=== PATIENT | male | born 1995 | race Caucasian/White ===

== ENCOUNTER 2016-04-13 13:09 | Outpatient (CLI) | payer BC ==
[~2016-04-13] VITALS: Ht 172.7 cm; Wt 88.0 kg
[~2016-04-13 13:09] MED LIST: ACETAMINOPHEN TAB 650MG DOSE (2X325MG) PO ONE; BENT10CA PO; CIPR500T89 PO; DELZ400C PO; FERR325T3 PO; IRON65TA PO; LIAL1.2T PO; METR500T10 PO; PRED20TA PO; PRED20TAB PO; PRIL40CA PO; REGL5TAB2 PO; TYLE325T5 PO; VEDOLIZUMAB 300 MG in NS 250 ML IV ONE; VITA500046 PO; VSL#CAP PO; ZOFR4TAB3 PO; diphenhydrAMINE 25 MG CAP PO ONE
[2016-04-13 14:13] LABS: BASO % 0.8 % (0.0-1.0); EOS # 0.3 K/mm3 (0.0-0.50); LARGE UNSTAINED CELL # 0.1 K/mm3 (0.0-0.4); LARGE UNSTAINED CELL % 1.4 % (0.0-4.0); LYMPH # 1.5 K/mm3 (1.5-6.5); LYMPH % 29.9 % (24.0-44.0); MEAN CORPUSCULAR HEMOGLOBIN 27.8 pg (27.0-33.0); MEAN CORPUSCULAR HGB CONC 34.8 g/dl (32.0-36.5); MEAN CORPUSCULAR VOLUME 79.9 fl (80.0-96.0); MONO # 0.2 K/mm3 (0.0-0.8); NEUTROPHILS # 2.9 K/mm3 (1.8-7.7); NEUTROPHILS % 57.9 % (36.0-66.0); WHITE BLOOD COUNT 4.9 K/mm3 (4.0-10.0)
[2016-04-13 14:14] LABS: ERYTHROCYTE SEDIMENTATION RATE 13 mm/hr (0-15)
[2016-04-13 14:17] LABS: PLATELET COUNT, AUTOMATED 22 k/mm3 (150-450)
[2016-04-13 14:32] LABS: ALBUMIN 3.9 GM/DL (3.2-5.2); ALBUMIN/GLOBULIN RATIO 1.18 (1.00-1.93); ALKALINE PHOSPHATASE 160 U/L (45-117); ALT/SGPT 20 U/L (12-78); ANION GAP 8 MEQ/L (8-16); AST/SGOT 11 U/L (15-37); BILIRUBIN,TOTAL 0.5 MG/DL (0.2-1.0); BLOOD UREA NITROGEN 11 MG/DL (7-18); CALCIUM LEVEL 8.6 MG/DL (8.5-10.1); CARBON DIOXIDE LEVEL 29 MEQ/L (21-32); CHLORIDE LEVEL 106 MEQ/L (98-107); CREATININE FOR GFR 1.09 MG/DL (0.70-1.30); GLUCOSE, FASTING 88 MG/DL (70-105); POTASSIUM SERUM 3.6 MEQ/L (3.5-5.1); SODIUM LEVEL 143 MEQ/L (136-145); TOTAL PROTEIN 7.2 GM/DL (6.4-8.2)
== END 2016-04-13 14:45 | disposition home or self-care (01) ==
LOC: M INFU 13:09
PROVIDERS: ATTEND Internal Medicine Gastroenterology
DX: K50.119 Crohn's disease of large intestine with unspecified complications (principal); D61.810 Antineoplastic chemotherapy induced pancytopenia; Z91.030 Bee allergy status; Z79.899 Other long term (current) drug therapy; Z79.52 Long term (current) use of systemic steroids
CPT/HCPCS: 36415; 80053; 85025; 85652; 86140; 96413; J3380

== ENCOUNTER → 2016-04-20 | Outpatient (CLI) | payer BC ==
[~2016-04-20] MED LIST changes: -ACETAMINOPHEN TAB 650MG DOSE (2X325MG) PO ONE; -VEDOLIZUMAB 300 MG in NS 250 ML IV ONE; -diphenhydrAMINE 25 MG CAP PO ONE
[2016-04-20 16:17] LABS: BASO % 0.6 % (0.0-1.0); EOS # 0.4 K/mm3 (0.0-0.50); EOS % 5.3 % (0.0-3.0); LARGE UNSTAINED CELL # 0.1 K/mm3 (0.0-0.4); LARGE UNSTAINED CELL % 1.9 % (0.0-4.0); LYMPH # 1.9 K/mm3 (1.5-6.5); LYMPH % 26.3 % (24.0-44.0); MEAN CORPUSCULAR HEMOGLOBIN 27.5 pg (27.0-33.0); MEAN CORPUSCULAR HGB CONC 34.2 g/dl (32.0-36.5); MEAN CORPUSCULAR VOLUME 80.3 fl (80.0-96.0); MONO # 0.4 K/mm3 (0.0-0.8); MONO % 5.1 % (0.0-5.0); NEUTROPHILS # 4.5 K/mm3 (1.8-7.7); NEUTROPHILS % 60.8 % (36.0-66.0); RED CELL DISTRIBUTION WIDTH 14.1 % (11.5-14.5); WHITE BLOOD COUNT 7.3 K/mm3 (4.0-10.0)
[2016-04-20 16:20] LABS: PLATELET COUNT, AUTOMATED 27 k/mm3 (150-450)
== END ==
LOC: M LAB 15:11
PROVIDERS: ATTEND Internal Medicine Gastroenterology
DX: D61.810 Antineoplastic chemotherapy induced pancytopenia (principal)

== ENCOUNTER → 2016-05-04 | Outpatient (CLI) | payer BC ==
[2016-05-04 13:51] LABS: BASO % 0.6 % (0.0-1.0); EOS # 0.5 K/mm3 (0.0-0.50); EOS % 7.3 % (0.0-3.0); LARGE UNSTAINED CELL # 0.2 K/mm3 (0.0-0.4); LARGE UNSTAINED CELL % 2.2 % (0.0-4.0); LYMPH # 2.2 K/mm3 (1.5-6.5); LYMPH % 34.4 % (24.0-44.0); MEAN CORPUSCULAR HEMOGLOBIN 27.6 pg (27.0-33.0); MEAN CORPUSCULAR HGB CONC 34.5 g/dl (32.0-36.5); MEAN CORPUSCULAR VOLUME 79.9 fl (80.0-96.0); MONO # 0.3 K/mm3 (0.0-0.8); NEUTROPHILS # 3.3 K/mm3 (1.8-7.7); NEUTROPHILS % 50.4 % (36.0-66.0); RED CELL DISTRIBUTION WIDTH 13.8 % (11.5-14.5); WHITE BLOOD COUNT 6.5 K/mm3 (4.0-10.0)
[2016-05-04 15:03] LABS: PLATELET COUNT, AUTOMATED 20 k/mm3 (150-450)
== END ==
LOC: M LAB 12:09
PROVIDERS: ATTEND Internal Medicine Gastroenterology
DX: K50.119 Crohn's disease of large intestine with unspecified complications (principal); D69.6 Thrombocytopenia, unspecified

== ENCOUNTER → 2016-05-10 | Outpatient (REF) | payer BC ==
[2016-05-10 13:30] LABS: BASO # 0.1 K/mm3 (0.0-0.2); BASO % 1.3 % (0.0-1.0); EOS # 0.6 K/mm3 (0.0-0.50); EOS % 6.6 % (0.0-3.0); LARGE UNSTAINED CELL # 0.2 K/mm3 (0.0-0.4); LARGE UNSTAINED CELL % 2.7 % (0.0-4.0); LYMPH # 2.6 K/mm3 (1.5-6.5); MEAN CORPUSCULAR HGB CONC 35.3 g/dl (32.0-36.5); MEAN CORPUSCULAR VOLUME 79.4 fl (80.0-96.0); MONO # 0.4 K/mm3 (0.0-0.8); MONO % 4.5 % (0.0-5.0); NEUTROPHILS # 4.7 K/mm3 (1.8-7.7); NEUTROPHILS % 54.9 % (36.0-66.0); RED CELL DISTRIBUTION WIDTH 13.9 % (11.5-14.5); WHITE BLOOD COUNT 8.5 K/mm3 (4.0-10.0)
[2016-05-10 13:36] LABS: PLATELET COUNT, AUTOMATED 23 k/mm3 (150-450)
== END | disposition home or self-care (01) ==
LOC: M SFHCPLAZ 11:58
PROVIDERS: ATTEND Family Medicine
DX: D69.6 Thrombocytopenia, unspecified (principal)

== ENCOUNTER → 2016-05-12 | Outpatient (CLI) | payer BC ==
[2016-05-12 12:38] LABS: BASO # 0.1 K/mm3 (0.0-0.2); BASO % 0.7 % (0.0-1.0); EOS # 0.6 K/mm3 (0.0-0.50); EOS % 7.8 % (0.0-3.0); LARGE UNSTAINED CELL # 0.2 K/mm3 (0.0-0.4); LARGE UNSTAINED CELL % 1.9 % (0.0-4.0); LYMPH # 2.4 K/mm3 (1.5-6.5); LYMPH % 30.9 % (24.0-44.0); MEAN CORPUSCULAR HEMOGLOBIN 27.5 pg (27.0-33.0); MEAN CORPUSCULAR HGB CONC 34.7 g/dl (32.0-36.5); MEAN CORPUSCULAR VOLUME 79.1 fl (80.0-96.0); MONO # 0.3 K/mm3 (0.0-0.8); MONO % 3.8 % (0.0-5.0); NEUTROPHILS # 4.3 K/mm3 (1.8-7.7); NEUTROPHILS % 54.8 % (36.0-66.0); RED CELL DISTRIBUTION WIDTH 13.8 % (11.5-14.5); WHITE BLOOD COUNT 7.8 K/mm3 (4.0-10.0)
[2016-05-12 12:44] LABS: ADD MORPHOLOGY? YES; PLATELET COUNT, AUTOMATED 21 k/mm3 (150-450)
[2016-05-12 13:00] LABS: MICROCYTOSIS 1+
== END ==
LOC: M LAB 12:10
PROVIDERS: ATTEND Internal Medicine Gastroenterology
DX: K50.119 Crohn's disease of large intestine with unspecified complications (principal); D69.6 Thrombocytopenia, unspecified

== ENCOUNTER → 2016-05-16 | Outpatient (REF) | payer BC ==
[2016-05-16 13:19] LABS: REASON FOR REVIEW COMPREHENSIVE REVIEW
[2016-05-16 13:50] LABS: ERYTHROCYTE SEDIMENTATION RATE 30 mm/hr (0-15)
== END ==
LOC: M LAB REF 12:28
PROVIDERS: ATTEND Internal Medicine Medical Oncology
DX: D69.6 Thrombocytopenia, unspecified (principal)

== ENCOUNTER → 2016-05-17 | Outpatient (CLI) | payer BC ==
--- NOTE | 2016-05-17 08:44 | REP ---
LIMITED ABDOMINAL ULTRASOUND: 05/17/2016. Comparison CT abdomen and pelvis 12/02/2015. Clinical history: Left upper quadrant abdominal pain. Evaluate for splenomegaly or other. Findings: Sonographic evaluation of the left upper quadrant shows the spleen measuring 11.6 x 10.5 x 5.6 cm. This gives a calculated splenic index of 682 with a normal range less than 480. On the previous CT 12/02/2015, it measured 12.7 x 5 x 11.8 mm giving a splenic index 749. There is no focal splenic mass, subcapsular hematoma or adjacent ascites. The left kidney measures 10 x 5.1 x 6.5 cm. There is no hydronephrosis, stone or mass. Cortical echogenicity and thickness are normal. Impression: 1. Mild splenomegaly without focal splenic mass, adjacent ascites or other acute finding in the left upper quadrant. Splenic index on today's ultrasound was 682.1, on the prior CT 5 months ago, it was 749.2. Left kidney unremarkable. Signed by Rubén Ricci MD 05/17/2016 08:15 P
== END ==
LOC: M RAD 06:56
PROVIDERS: ATTEND Internal Medicine Medical Oncology
DX: R16.1 Splenomegaly, not elsewhere classified (principal)

== ENCOUNTER → 2016-05-17 | Outpatient (REF) | payer BC | LOC: M LAB REF 16:39 | PROVIDERS: ATTEND Internal Medicine Medical Oncology | DX: D69.6 Thrombocytopenia, unspecified (principal) ==

== ENCOUNTER → 2016-05-24 | Outpatient (CLI) | payer BC ==
--- NOTE | 2016-05-24 14:00 | REP ---
MR BRAIN WITHOUT CONTRAST: HISTORY: Headaches. There are no areas of abnormal signal intensity in the brain. There is no intraparenchymal hemorrhage, infarct, mass or midline shift. The ventricular system is normal in appearance. There is no extracerebral collection. The sinuses are clear. IMPRESSION: There is no intracranial lesion. Signed by Jeffrey Eldridge MD 05/24/2016 02:02 P
== END ==
LOC: M RAD 13:11
PROVIDERS: ATTEND Family Medicine
DX: R51 Headache (principal)

== ENCOUNTER 2016-06-08 06:56 | Outpatient (CLI) | payer BC ==
[~2016-06-08] VITALS: Ht 172.7 cm; Wt 88.0 kg
[2016-06-08] MEDS ORDERED: diphenhydrAMINE 25 MG CAP PO ONE (07:00)
[2016-06-08] MEDS ORDERED: ACETAMINOPHEN TAB 650MG DOSE (2X325MG) PO ONE (07:00)
[2016-06-08] MEDS ORDERED: VEDOLIZUMAB 300 MG in NS 250 ML IV ONE (07:00)
== END 2016-06-08 08:30 | disposition home or self-care (01) ==
LOC: M INFU 06:56
PROVIDERS: ATTEND Internal Medicine Gastroenterology
DX: K50.90 Crohn's disease, unspecified, without complications (principal); Z79.899 Other long term (current) drug therapy; Z91.030 Bee allergy status
CPT/HCPCS: 96413; J3380

== ENCOUNTER → 2016-06-15 | Outpatient (REF) | payer BC ==
[2016-06-18 00:06] LABS: H PYLORI SERUM QUANT IgG ABY <0.9 U/mL (0.0-0.8)
== END ==
LOC: M LAB REF 13:10
PROVIDERS: ATTEND Internal Medicine Medical Oncology
DX: D69.3 Immune thrombocytopenic purpura (principal)

== ENCOUNTER → 2016-07-04 | Outpatient (REF) | payer BC | LOC: M LAB REF 09:05 | PROVIDERS: ATTEND Nurse Practitioner Family | DX: D69.6 Thrombocytopenia, unspecified (principal) ==

== ENCOUNTER 2016-07-27 13:19 | Outpatient (CLI) | payer BC ==
[~2016-07-27] VITALS: Ht 172.7 cm; Wt 87.0 kg
[~2016-07-27 13:19] MED LIST changes: +ACETAMINOPHEN TAB 650MG DOSE (2X325MG) PO ONE; +VEDOLIZUMAB 300 MG in NS 250 ML IV ONE; +diphenhydrAMINE 25 MG CAP PO ONE
[2016-07-27 15:05] LABS: FOLATE 15.8 NG/ML; VITAMIN B12 LEVEL 483 PG/ML
[2016-07-31 00:10] LABS: VITAMIN E LEVEL 10.9 mg/L (5.3-17.5)
== END 2016-07-27 15:10 | disposition home or self-care (01) ==
LOC: M INFU 13:19
PROVIDERS: ATTEND Internal Medicine Gastroenterology
DX: K50.90 Crohn's disease, unspecified, without complications (principal); R51 Headache; Z87.19 Personal history of other diseases of the digestive system; Z91.030 Bee allergy status; Z79.899 Other long term (current) drug therapy
CPT/HCPCS: 82306; 82390; 82525; 82607; 82746; 84207; 84425; 84446; 85652; 86038; 86431; 96413; 99195; J3380

== ENCOUNTER 2016-09-21 12:30 | Outpatient (CLI) | payer BC ==
[~2016-09-21 12:30] MED LIST changes: +CIPR-249 PO; -CIPR500T89 PO; +METR1TAB66 PO; -METR500T10 PO
[2017-01-19] MEDS ORDERED: OXYC15TA76 PO (13:46)
[2017-01-19] MEDS ORDERED: PAME10CA PO (13:46)
== END 2016-09-21 13:25 | disposition home or self-care (01) ==
LOC: M INFU 12:30
PROVIDERS: ATTEND Internal Medicine Gastroenterology
DX: K50.90 Crohn's disease, unspecified, without complications (principal); Z87.19 Personal history of other diseases of the digestive system; Z91.030 Bee allergy status; Z79.899 Other long term (current) drug therapy
CPT/HCPCS: 96413; J3380

== ENCOUNTER 2016-11-24 13:27 | Outpatient (CLI) | payer BC ==
[~2016-11-24 13:27] MED LIST changes: -ACETAMINOPHEN TAB 650MG DOSE (2X325MG) PO ONE; -VEDOLIZUMAB 300 MG in NS 250 ML IV ONE; -diphenhydrAMINE 25 MG CAP PO ONE
[2016-11-24] MEDS ORDERED: ACETAMINOPHEN TAB 650MG DOSE (2X325MG) PO ONE (14:00)
[2016-11-24] MEDS ORDERED: diphenhydrAMINE 25 MG CAP PO ONE (14:00)
[2016-11-24] MEDS ORDERED: VEDOLIZUMAB 300 MG in NS 250 ML IV ONE (14:00)
[2017-01-19] MEDS ORDERED: OXYC15TA76 PO (13:46)
[2017-01-19] MEDS ORDERED: PAME10CA PO (13:46)
== END 2016-11-24 15:00 | disposition home or self-care (01) ==
LOC: M INFU 13:27
PROVIDERS: ATTEND Internal Medicine Gastroenterology
DX: K50.90 Crohn's disease, unspecified, without complications (principal); Z91.030 Bee allergy status; Z79.899 Other long term (current) drug therapy
CPT/HCPCS: 96413; J3380

== ENCOUNTER 2017-02-21 10:45 | Outpatient (RCR) | payer BC ==
[~2017-02-21 10:45] MED LIST changes: +OXYC15TA76 PO; +PAME10CA PO
== END 2017-02-22 ==
LOC: M PT 10:45
PROVIDERS: ATTEND Family Medicine
DX: Z51.89 Encounter for other specified aftercare (principal); M54.2 Cervicalgia; R51 Headache

== ENCOUNTER 2017-02-26 11:08 | Outpatient (RCR) | payer BC | END 2017-03-25 | LOC: M PT 11:08 | DX: Z51.89 Encounter for other specified aftercare (principal); M54.2 Cervicalgia; R51 Headache | CPT/HCPCS: 97010 ==

== ENCOUNTER → 2017-03-07 | Outpatient (REF) | payer BC ==
[2017-03-07 15:32] LABS: BASO % 0.4 % (0.0-1.0); EOS % 0.5 % (0.0-3.0); IMMATURE GRANULOCYTE % 0.4 % (0-0); LYMPH # 1.6 10^3/uL (1.5-6.5); LYMPH % 19.9 % (24.0-44.0); MEAN CORPUSCULAR HEMOGLOBIN 24.6 pg (27.0-33.0); MEAN CORPUSCULAR HGB CONC 31.7 g/dl (32.0-36.5); MEAN CORPUSCULAR VOLUME 77.7 fl (80.0-96.0); MONO # 0.3 10^3/uL (0.0-0.8); MONO % 3.9 % (0.0-5.0); NEUTROPHILS # 5.9 10^3/uL (1.8-7.7); NEUTROPHILS % 74.9 % (36.0-66.0); WHITE BLOOD COUNT 7.9 10^3/uL (4.0-10.0)
[2017-03-07 16:02] LABS: PLATELET COUNT, AUTOMATED 77 10^3/uL (150-450)
[2017-03-07 16:05] LABS: IMMATURE PLATELET FRACTION % 9.7 % (0.0-10.9)
== END ==
LOC: M SFHCPLAZ 14:26
PROVIDERS: ATTEND Family Medicine
DX: E66.9 Obesity, unspecified (principal); D69.3 Immune thrombocytopenic purpura

== ENCOUNTER 2017-03-16 13:27 | Outpatient (CLI) | payer BC ==
[~2017-03-16] VITALS: Ht 172.7 cm; Wt 88.0 kg
[2017-03-16] MEDS ORDERED: diphenhydrAMINE 25 MG CAP PO ONE (13:45)
[2017-03-16] MEDS ORDERED: ACETAMINOPHEN TAB 650MG DOSE (2X325MG) PO ONE (13:45)
[2017-03-16] MEDS ORDERED: VEDOLIZUMAB 300 MG in NS 250 ML IV ONE (13:45)
== END 2017-03-16 14:45 | disposition home or self-care (01) ==
LOC: M INFU 13:27
PROVIDERS: ATTEND Internal Medicine Gastroenterology
DX: K50.90 Crohn's disease, unspecified, without complications (principal); Z91.030 Bee allergy status; Z79.899 Other long term (current) drug therapy
CPT/HCPCS: 96365; J3380

== ENCOUNTER 2017-04-02 11:06 | Outpatient (RCR) | payer BC | END 2017-04-25 | LOC: M PT 11:06 | DX: Z51.89 Encounter for other specified aftercare (principal); M54.2 Cervicalgia; R51 Headache | CPT/HCPCS: 97010 ==

== ENCOUNTER 2017-04-27 13:56 | Outpatient (CLI) | payer BC ==
[2017-04-27] MEDS: diphenhydrAMINE 25 MG CAP PO (14:15)
[2017-04-27] MEDS: ACETAMINOPHEN TAB 650MG DOSE (2X325MG) PO (14:15)
[2017-04-27] MEDS: VEDOLIZUMAB 300 MG in NS 250 ML IV (14:17)
== END 2017-04-27 15:00 | disposition home or self-care (01) ==
LOC: M INFU 13:56
DX: K50.90 Crohn's disease, unspecified, without complications (principal); Z79.899 Other long term (current) drug therapy; Z91.030 Bee allergy status
CPT/HCPCS: J3380

== ENCOUNTER 2017-04-30 12:20 | Outpatient (RCR) | payer BC | END 2017-05-23 | LOC: M PT 12:20 | DX: Z51.89 Encounter for other specified aftercare (principal); R51 Headache; M54.2 Cervicalgia | CPT/HCPCS: 97010 ==

== ENCOUNTER → 2017-05-01 | Outpatient (REF) | payer BC ==
[2017-05-01 19:50] LABS: FERRITIN 4 NG/ML (26-388); IRON (FE) 17 UG/DL (65-175); PERCENT SATURATION 4.5 % (19.7-50.0); TOTAL IRON BINDING CAPACITY 377 UG/DL (250-450); TOTAL PROTEIN 7.4 GM/DL (6.4-8.2)
[2017-05-01 20:07] LABS: VITAMIN B12 LEVEL 620 PG/ML (247-911)
[2017-05-01 20:10] LABS: REASON FOR REVIEW OTHER; SLIDE REVIEW Report; SOURCE PERIPHERAL SMEAR
[2017-05-03 08:06] LABS: HAPTOGLOBIN 229 mg/dL (34-200)
[2017-05-03 13:34] LABS: ALBUMIN 4.05 GM/DL (3.29-5.55); ALBUMIN % 54.7 % (55.8-66.1); ALPHA-1-GLOBULIN % 5.7 % (2.9-4.9); ALPHA-1-GLOBULINS 0.42 GM/DL (0.17-0.41); ALPHA-2-GLOBULINS 0.91 GM/DL (0.42-0.99); ALPHA-2-GLOBULINS % 12.3 % (7.1-11.8); BETA-1-GLOBULINS 0.47 GM/DL (0.28-0.60); BETA-1-GLOBULINS % 6.3 % (4.7-7.2); BETA-2-GLOBULINS 0.39 GM/DL (0.19-0.55); BETA-2-GLOBULINS % 5.3 % (3.2-6.5); GAMMA GLOBULIN % 15.7 % (11.1-18.8); GAMMA GLOBULINS 1.16 GM/DL (0.65-1.58)
== END ==
LOC: M LAB REF 18:29
DX: D69.3 Immune thrombocytopenic purpura (principal)
CPT/HCPCS: 83010

== ENCOUNTER 2017-05-29 10:45 | Outpatient (RCR) | payer BC | END 2017-06-23 | LOC: M PT 10:45 | DX: Z51.89 Encounter for other specified aftercare (principal); R51 Headache; M54.2 Cervicalgia | CPT/HCPCS: 97010 ==

== ENCOUNTER 2017-06-08 13:31 | Outpatient (CLI) | payer BC ==
[2017-06-08] MEDS: diphenhydrAMINE 25 MG CAP PO (13:15)
[2017-06-08] MEDS: ACETAMINOPHEN TAB 650MG DOSE (2X325MG) PO (13:15)
[2017-06-08] MEDS: VEDOLIZUMAB 300 MG in NS 250 ML IV (13:57)
== END 2017-06-08 14:45 | disposition home or self-care (01) ==
LOC: M INFU 13:31
DX: K50.90 Crohn's disease, unspecified, without complications (principal); D64.9 Anemia, unspecified; Z79.899 Other long term (current) drug therapy; Z91.030 Bee allergy status
CPT/HCPCS: J3380

== ENCOUNTER 2017-07-20 12:44 | Outpatient (CLI) | payer BC ==
[2017-07-20] MEDS: VEDOLIZUMAB 300 MG in NS 250 ML IV (13:19)
[2017-07-20] MEDS: diphenhydrAMINE 25 MG CAP PO (13:19)
[2017-07-20] MEDS: ACETAMINOPHEN TAB 650MG DOSE (2X325MG) PO (13:20)
== END 2017-07-20 14:00 | disposition home or self-care (01) ==
LOC: M INFU 12:44
DX: K50.90 Crohn's disease, unspecified, without complications (principal); Z91.030 Bee allergy status; Z79.899 Other long term (current) drug therapy
CPT/HCPCS: J3380

== ENCOUNTER 2017-08-27 16:03 | Outpatient (CLI) | payer BC ==
[2017-08-27] MEDS: diphenhydrAMINE 25 MG CAP PO (16:00)
[2017-08-27] MEDS: VEDOLIZUMAB 300 MG in NS 250 ML IV (16:00)
[2017-08-27] MEDS: ACETAMINOPHEN TAB 650MG DOSE (2X325MG) PO (16:00)
== END 2017-08-27 17:00 | disposition home or self-care (01) ==
LOC: M INFU 16:03
DX: K50.90 Crohn's disease, unspecified, without complications (principal); D64.9 Anemia, unspecified; Z79.899 Other long term (current) drug therapy; Z91.030 Bee allergy status; Z87.19 Personal history of other diseases of the digestive system
CPT/HCPCS: J3380

== ENCOUNTER 2017-10-01 06:51 | Outpatient (CLI) | payer BC ==
[2017-10-01] MEDS: ACETAMINOPHEN TAB 650MG DOSE (2X325MG) PO (06:45)
[2017-10-01] MEDS: diphenhydrAMINE 25 MG CAP PO (06:45)
[2017-10-01] MEDS: VEDOLIZUMAB 300 MG in NS 250 ML IV (08:05)
== END 2017-10-01 08:30 | disposition home or self-care (01) ==
LOC: M INFU 06:51
DX: K50.90 Crohn's disease, unspecified, without complications (principal); Z91.030 Bee allergy status; Z79.899 Other long term (current) drug therapy
CPT/HCPCS: J3380

== ENCOUNTER 2017-12-03 07:25 | Outpatient (CLI) | payer BC ==
[2017-12-03] MEDS: ACETAMINOPHEN TAB 650MG DOSE (2X325MG) PO (07:45)
[2017-12-03] MEDS: diphenhydrAMINE 25 MG CAP PO (07:45)
[2017-12-03] MEDS: VEDOLIZUMAB 300 MG in NS 250 ML IV (09:01)
== END 2017-12-03 09:40 | disposition home or self-care (01) ==
LOC: M INFU 07:25
DX: K50.90 Crohn's disease, unspecified, without complications (principal); Z79.891 Long term (current) use of opiate analgesic; Z79.899 Other long term (current) drug therapy; Z91.030 Bee allergy status; Z87.19 Personal history of other diseases of the digestive system; Z87.820 Personal history of traumatic brain injury
CPT/HCPCS: J3380

== ENCOUNTER 2018-01-11 16:21 | Outpatient (CLI) | payer BC ==
[2018-01-11] MEDS: diphenhydrAMINE 25 MG CAP PO (16:40)
[2018-01-11] MEDS: ACETAMINOPHEN TAB 650MG DOSE (2X325MG) PO (16:41)
[2018-01-11] MEDS: VEDOLIZUMAB 300 MG in NS 250 ML IV (16:42)
== END 2018-01-11 17:25 | disposition home or self-care (01) ==
LOC: M INFU 16:21
DX: K50.90 Crohn's disease, unspecified, without complications (principal); Z79.891 Long term (current) use of opiate analgesic; Z79.899 Other long term (current) drug therapy
CPT/HCPCS: J3380

== ENCOUNTER → 2018-08-29 | Outpatient (REF) | payer BC ==
[~2018-08-29] MED LIST changes: +METR-265 PO; -METR1TAB66 PO; +ZOFR4TAB14 PO; -ZOFR4TAB3 PO
== END ==
LOC: M SFHCCLAY 10:48
PROVIDERS: ATTEND Family Medicine
DX: K50.811 Crohn's disease of both small and large intestine with rectal bleeding (principal); D69.3 Immune thrombocytopenic purpura; Z53.9 Procedure and treatment not carried out, unspecified reason

== ENCOUNTER → 2018-08-30 | Outpatient (CLI) | payer BC ==
[2018-08-30 11:31] LABS: HEMOGLOBIN 9.6 g/dl (13.5-17.5); MEAN CORPUSCULAR HEMOGLOBIN 19.8 pg (27.0-33.0); MEAN CORPUSCULAR HGB CONC 28.2 g/dl (32.0-36.5); MEAN CORPUSCULAR VOLUME 70.2 fl (80.0-96.0); PLATELET COUNT, AUTOMATED 101 10^3/uL (150-450); RED BLOOD COUNT 4.84 10^6/uL (4.30-6.10); WHITE BLOOD COUNT 7.4 10^3/uL (4.0-10.0)
[2018-08-30 12:04] LABS: ALBUMIN 3.3 GM/DL (3.2-5.2); ALT/SGPT 12 U/L (12-78); BILIRUBIN,TOTAL 0.4 MG/DL (0.2-1.0); BLOOD UREA NITROGEN 10 MG/DL (7-18); CARBON DIOXIDE LEVEL 26 MEQ/L (21-32); CHLORIDE LEVEL 110 MEQ/L (98-107); CREATININE FOR GFR 0.97 MG/DL (0.70-1.30); GLOMERULAR FILTRATION RATE > 60.0 (>60); GLUCOSE, FASTING 89 MG/DL (70-100); POTASSIUM SERUM 4.2 MEQ/L (3.5-5.1); SODIUM LEVEL 145 MEQ/L (136-145); TOTAL PROTEIN 7.1 GM/DL (6.4-8.2); VITAMIN B12 LEVEL 868 PG/ML (247-911)
== END ==
LOC: M LAB 10:40
PROVIDERS: ATTEND Family Medicine
DX: K50.811 Crohn's disease of both small and large intestine with rectal bleeding (principal); D69.3 Immune thrombocytopenic purpura

== ENCOUNTER → 2018-09-23 | Outpatient (CLI) | payer BC ==
[2018-09-23 19:03] LABS: BASO # 0.1 10^3/uL (0.0-0.2); BASO % 1.2 % (0.0-1.0); EOS # 0.5 10^3/uL (0.0-0.50); EOS % 5.8 % (0.0-3.0); HEMATOCRIT 38.7 % (42.0-52.0); HEMOGLOBIN 11.3 g/dl (13.5-17.5); LYMPH # 2.7 10^3/uL (1.5-6.5); LYMPH % 34.1 % (24.0-44.0); MEAN CORPUSCULAR HEMOGLOBIN 21.6 pg (27.0-33.0); MEAN CORPUSCULAR HGB CONC 29.2 g/dl (32.0-36.5); MEAN CORPUSCULAR VOLUME 74.1 fl (80.0-96.0); MONO # 0.6 10^3/uL (0.0-0.8); MONO % 7.6 % (0.0-5.0); RED BLOOD COUNT 5.22 10^6/uL (4.30-6.10); WHITE BLOOD COUNT 7.8 10^3/uL (4.0-10.0)
[2018-09-23 19:14] LABS: ALBUMIN 3.3 GM/DL (3.2-5.2); ALT/SGPT 10 U/L (12-78); BILIRUBIN,DIRECT 0.1 MG/DL (0.0-0.2); BILIRUBIN,TOTAL 0.3 MG/DL (0.2-1.0); C REACTIVE PROTEIN QUANTITATIV < 0.30 MG/DL (0.00-0.30); FERRITIN 14 NG/ML (26-388); IRON (FE) 40 UG/DL (65-175); PERCENT SATURATION 10.7 % (19.7-50.0); TOTAL IRON BINDING CAPACITY 373 UG/DL (250-450)
[2018-09-23 19:37] LABS: FOLATE > 24.0 NG/ML (>5.4)
[2018-09-23 19:55] LABS: PLATELET COUNT, AUTOMATED 39 10^3/uL (150-450)
[2018-09-25 14:34] LABS: TISSUE TRANSGLUTAMINASE IgA <2 U/mL (0-3)
== END ==
LOC: M LAB 16:46
PROVIDERS: ATTEND Internal Medicine Gastroenterology
DX: K50.111 Crohn's disease of large intestine with rectal bleeding (principal); D69.3 Immune thrombocytopenic purpura; D59.0 Drug-induced autoimmune hemolytic anemia

== ENCOUNTER → 2018-10-22 | Outpatient (REF) | payer BC | LOC: M SFHCCLAY 11:59 | PROVIDERS: ATTEND Family Medicine | DX: D64.9 Anemia, unspecified (principal) ==

== ENCOUNTER → 2019-04-08 | Outpatient (REF) | payer BC ==
[2019-04-08 16:34] LABS: BASO # 0.1 10^3/uL (0.0-0.2); BASO % 0.8 % (0.0-1.0); EOS # 0.1 10^3/uL (0.0-0.5); EOS % 1.4 % (0.0-3.0); HEMATOCRIT 35.7 % (42.0-52.0); HEMOGLOBIN 10.9 g/dl (13.5-17.5); LYMPH # 2.3 10^3/uL (1.5-5.0); LYMPH % 31.9 % (24.0-44.0); MEAN CORPUSCULAR HEMOGLOBIN 22.8 pg (27.0-33.0); MEAN CORPUSCULAR HGB CONC 30.5 g/dl (32.0-36.5); MEAN CORPUSCULAR VOLUME 74.5 fl (80.0-96.0); MONO # 0.6 10^3/uL (0.0-0.8); MONO % 7.5 % (0.0-5.0); NEUTROPHILS # 4.3 10^3/uL (1.5-8.5); NEUTROPHILS % 58.3 % (36.0-66.0); PLATELET COUNT, AUTOMATED 103 10^3/uL (150-450); RED BLOOD COUNT 4.79 10^6/uL (4.30-6.10); WHITE BLOOD COUNT 7.3 10^3/uL (4.0-10.0)
== END ==
LOC: M SFHCCLAY 13:04
PROVIDERS: ATTEND Family Medicine
DX: D69.3 Immune thrombocytopenic purpura (principal)

== ENCOUNTER → 2019-05-07 | Outpatient (REF) | payer BC ==
[2019-05-07 16:40] LABS: BASO % 0.4 % (0.0-1.0); EOS # 0.2 10^3/uL (0.0-0.5); HEMATOCRIT 40.4 % (42.0-52.0); HEMOGLOBIN 11.5 g/dl (13.5-17.5); LYMPH # 2.6 10^3/uL (1.5-5.0); LYMPH % 25.7 % (24.0-44.0); MEAN CORPUSCULAR HEMOGLOBIN 21.6 pg (27.0-33.0); MEAN CORPUSCULAR HGB CONC 28.5 g/dl (32.0-36.5); MEAN CORPUSCULAR VOLUME 75.8 fl (80.0-96.0); MONO # 0.4 10^3/uL (0.0-0.8); MONO % 3.6 % (0.0-5.0); NEUTROPHILS # 6.9 10^3/uL (1.5-8.5); NEUTROPHILS % 67.8 % (36.0-66.0); PLATELET COUNT, AUTOMATED 292 10^3/uL (150-450); RED BLOOD COUNT 5.33 10^6/uL (4.30-6.10); WHITE BLOOD COUNT 10.1 10^3/uL (4.0-10.0)
[2019-05-07 16:52] LABS: ALBUMIN 3.7 GM/DL (3.2-5.2); ALT/SGPT 14 U/L (12-78); BILIRUBIN,TOTAL 0.4 MG/DL (0.2-1.0); BLOOD UREA NITROGEN 15 MG/DL (7-18); C REACTIVE PROTEIN QUANTITATIV < 0.30 MG/DL (0.00-0.30); CARBON DIOXIDE LEVEL 31 MEQ/L (21-32); CHLORIDE LEVEL 105 MEQ/L (98-107); CREATININE FOR GFR 1.12 MG/DL (0.70-1.30); GLOMERULAR FILTRATION RATE > 60.0 (>60); GLUCOSE, FASTING 123 MG/DL (70-100); IRON (FE) 17 UG/DL (65-175); LDH LACTATE DEHYDROGENASE 180 U/L (87-241); PERCENT SATURATION 4.4 % (19.7-50.0); POTASSIUM SERUM 3.8 MEQ/L (3.5-5.1); SODIUM LEVEL 141 MEQ/L (136-145); TOTAL IRON BINDING CAPACITY 385 UG/DL (250-450); TOTAL PROTEIN 7.1 GM/DL (6.4-8.2)
== END ==
LOC: M SFHCCLAY 12:25
PROVIDERS: ATTEND Family Medicine
DX: D69.6 Thrombocytopenia, unspecified (principal); K50.811 Crohn's disease of both small and large intestine with rectal bleeding

== ENCOUNTER → 2019-06-12 | Outpatient (REF) | payer BC | LOC: M LABDRAWC 16:05 | PROVIDERS: ATTEND Internal Medicine Gastroenterology | DX: K50.111 Crohn's disease of large intestine with rectal bleeding (principal) ==

== ENCOUNTER → 2019-06-12 | Outpatient (REF) | payer BC ==
[2019-06-12 17:27] LABS: HEMATOCRIT 41.6 % (42.0-52.0); HEMOGLOBIN 12.5 g/dl (13.5-17.5); MEAN CORPUSCULAR VOLUME 73.2 fl (80.0-96.0); PLATELET COUNT, AUTOMATED 112 10^3/uL (150-450); RED BLOOD COUNT 5.68 10^6/uL (4.30-6.10)
== END ==
LOC: M SFHCCLAY 12:42
PROVIDERS: ATTEND Family Medicine
DX: K50.811 Crohn's disease of both small and large intestine with rectal bleeding (principal); D64.9 Anemia, unspecified

== ENCOUNTER → 2019-08-15 | Outpatient (REF) | payer BC ==
[~2019-08-15] MED LIST changes: -DELZ400C PO; +DELZ400C5 PO; +OXYC-1 PO; -OXYC15TA76 PO
[2019-08-15 16:24] LABS: BASO # 0.1 10^3/uL (0.0-0.2); BASO % 0.8 % (0.0-1.0); EOS # 0.3 10^3/uL (0.0-0.5); EOS % 4.6 % (0.0-3.0); HEMATOCRIT 33.8 % (42.0-52.0); HEMOGLOBIN 9.7 g/dl (13.5-17.5); LYMPH # 2.1 10^3/uL (1.5-5.0); LYMPH % 35.9 % (24.0-44.0); MEAN CORPUSCULAR HEMOGLOBIN 20.3 pg (27.0-33.0); MEAN CORPUSCULAR HGB CONC 28.7 g/dl (32.0-36.5); MEAN CORPUSCULAR VOLUME 70.9 fl (80.0-96.0); MONO # 0.4 10^3/uL (0.0-0.8); MONO % 7.3 % (0.0-5.0); NEUTROPHILS % 51.2 % (36.0-66.0); PLATELET COUNT, AUTOMATED 159 10^3/uL (150-450); RED BLOOD COUNT 4.77 10^6/uL (4.30-6.10); WHITE BLOOD COUNT 5.9 10^3/uL (4.0-10.0)
[2019-08-15 16:35] LABS: ALBUMIN 3.7 GM/DL (3.2-5.2); ALT/SGPT 15 U/L (12-78); BILIRUBIN,DIRECT < 0.1 MG/DL (0.0-0.2); BILIRUBIN,TOTAL 0.3 MG/DL (0.2-1.0); C REACTIVE PROTEIN QUANTITATIV < 0.30 MG/DL (0.00-0.30); TOTAL PROTEIN 7.3 GM/DL (6.4-8.2)
== END ==
LOC: M LABDRAWC 15:38
PROVIDERS: ATTEND Internal Medicine Gastroenterology
DX: K50.111 Crohn's disease of large intestine with rectal bleeding (principal)

== ENCOUNTER 2019-09-23 10:31 | Outpatient (CLI) | payer BC ==
[~2019-09-23] VITALS: Ht 175.3 cm; Wt 70.5 kg
[2019-09-23 10:56] VITALS: BP 123/74
[2019-09-23] MEDS ORDERED: IRON SUCROSE 500 MG in NS 250 ML IV ONE (11:00)
[2019-09-23 12:00] VITALS: BP 124/72
[2019-09-23 13:14] VITALS: BP 118/64
[2019-09-23 14:08] VITALS: BP 110/65
[2019-09-23 15:38] VITALS: BP 127/69
[2019-09-23 16:25] VITALS: BP 112/67
== END 2019-09-23 16:25 | disposition home or self-care (01) ==
LOC: M INFU 10:31
PROVIDERS: ATTEND Family Medicine
DX: D50.9 Iron deficiency anemia, unspecified (principal); K50.90 Crohn's disease, unspecified, without complications; Z91.030 Bee allergy status
CPT/HCPCS: 96365; 96366; J1756

== ENCOUNTER → 2019-11-14 | Outpatient (REF) | payer BC ==
[~2019-11-14] MED LIST changes: +BUDE3CAP PO; +MESA1.2T PO; +MULT1TAB8 PO; +OMEP40CA97 PO; +STEL90IN SC; +VITA1CAP25 PO
[2019-11-14 17:28] LABS: BASO # 0.1 10^3/uL (0.0-0.2); BASO % 1.1 % (0.0-1.0); EOS # 0.2 10^3/uL (0.0-0.5); EOS % 3.9 % (0.0-3.0); HEMATOCRIT 39.6 % (42.0-52.0); HEMOGLOBIN 11.9 g/dl (13.5-17.5); LYMPH % 35.7 % (24.0-44.0); MEAN CORPUSCULAR HEMOGLOBIN 21.8 pg (27.0-33.0); MEAN CORPUSCULAR HGB CONC 30.1 g/dl (32.0-36.5); MEAN CORPUSCULAR VOLUME 72.4 fl (80.0-96.0); MONO # 0.5 10^3/uL (0.0-0.8); MONO % 8.2 % (0.0-5.0); NEUTROPHILS # 2.9 10^3/uL (1.5-8.5); NEUTROPHILS % 50.7 % (36.0-66.0); RED BLOOD COUNT 5.47 10^6/uL (4.30-6.10); WHITE BLOOD COUNT 5.7 10^3/uL (4.0-10.0)
[2019-11-14 18:09] LABS: PLATELET COUNT, AUTOMATED 88 10^3/uL (150-450)
[2019-11-14 18:22] LABS: ALBUMIN 3.8 GM/DL (3.2-5.2); ALT/SGPT 18 U/L (12-78); BILIRUBIN,TOTAL 0.4 MG/DL (0.2-1.0); BLOOD UREA NITROGEN 11 MG/DL (7-18); CALCIUM LEVEL 8.9 MG/DL (8.5-10.1); CARBON DIOXIDE LEVEL 32 MEQ/L (21-32); CHLORIDE LEVEL 107 MEQ/L (98-107); CREATININE FOR GFR 1.02 MG/DL (0.70-1.30); GLOMERULAR FILTRATION RATE > 60.0 (>60); GLUCOSE, FASTING 76 MG/DL (70-100); IRON (FE) 29 UG/DL (65-175); PERCENT SATURATION 7.2 % (19.7-50.0); POTASSIUM SERUM 4.2 MEQ/L (3.5-5.1); SODIUM LEVEL 140 MEQ/L (136-145); TOTAL IRON BINDING CAPACITY 404 UG/DL (250-450); TOTAL PROTEIN 7.3 GM/DL (6.4-8.2)
== END ==
LOC: M LAB REF 13:40
PROVIDERS: ATTEND Family Medicine
DX: K50.90 Crohn's disease, unspecified, without complications (principal); D69.3 Immune thrombocytopenic purpura

== ENCOUNTER 2019-12-10 07:25 | Outpatient (CLI) | payer BC ==
[~2019-12-10] VITALS: Ht 172.7 cm; Wt 72.2 kg
[~2019-12-10 07:25] MED LIST changes: +ACETAMINOPHEN TAB 650MG DOSE (2X325MG) PO ONE; -BUDE3CAP PO; -OMEP40CA97 PO; -VITA1CAP25 PO
[2019-12-10 07:30] VITALS: BP 136/84
[2019-12-10] MEDS ORDERED: diphenhydrAMINE 25MG CAP PO ONE (07:30)
[2019-12-10] MEDS ORDERED: IRON SUCROSE 200 MG in NS 100 ML OVER 1 HR IV ONE (07:30)
[2019-12-10] MEDS ORDERED: diphenhydrAMINE 25MG CAP As Ordered ONE (07:56)
[2019-12-10] MEDS ORDERED: ACETAMINOPHEN TAB 650MG DOSE (2X325MG) As Ordered ONE (07:57)
[2019-12-10 08:29] VITALS: BP 116/59
[2019-12-10 09:30] VITALS: BP 118/66
[2019-12-10 10:10] VITALS: BP 115/65
[2019-12-10 10:40] VITALS: BP 126/61
[2020-01-05] MEDS ORDERED: VITA1CAP25 PO (15:23)
[2020-01-05] MEDS ORDERED: BUDE3CAP PO (15:23)
[2020-01-05] MEDS ORDERED: OMEP40CA97 PO (15:23)
== END 2019-12-10 10:40 | disposition home or self-care (01) ==
LOC: M INFU 07:25
PROVIDERS: ATTEND Internal Medicine Hematology & Oncology
DX: K50.90 Crohn's disease, unspecified, without complications (principal); D50.9 Iron deficiency anemia, unspecified
CPT/HCPCS: 96365; 96366; J1756

== ENCOUNTER 2019-12-17 07:32 | Outpatient (CLI) | payer BC ==
[~2019-12-17] VITALS: Ht 175.3 cm; Wt 70.5 kg
[~2019-12-17 07:32] MED LIST changes: +IRON SUCROSE 200 MG in NS 100 ML OVER 1 HR IV ONE; +diphenhydrAMINE 25MG CAP PO ONE
[2019-12-17 07:35] VITALS: BP 113/68
[2019-12-17] MEDS ORDERED: diphenhydrAMINE 25MG CAP As Ordered ONE (07:39)
[2019-12-17] MEDS ORDERED: ACETAMINOPHEN TAB 650MG DOSE (2X325MG) As Ordered ONE (07:39)
[2019-12-17 08:16] VITALS: BP 123/72
[2019-12-17 09:15] VITALS: BP 113/59
[2019-12-17 10:10] VITALS: BP 134/67
[2020-01-05] MEDS ORDERED: OMEP40CA97 PO (15:23)
[2020-01-05] MEDS ORDERED: VITA1CAP25 PO (15:23)
[2020-01-05] MEDS ORDERED: BUDE3CAP PO (15:23)
== END 2019-12-17 10:10 | disposition home or self-care (01) ==
LOC: M INFU 07:32
PROVIDERS: ATTEND Internal Medicine Hematology & Oncology
DX: K50.90 Crohn's disease, unspecified, without complications (principal); D50.9 Iron deficiency anemia, unspecified
CPT/HCPCS: 96365; 96366; J1756

== ENCOUNTER 2019-12-24 07:42 | Outpatient (CLI) | payer BC ==
[~2019-12-24] VITALS: Ht 175.3 cm; Wt 70.5 kg
[2019-12-24 07:45] VITALS: BP 119/77
[2019-12-24 08:30] VITALS: BP 119/62
[2019-12-24 09:35] VITALS: BP 112/59
[2019-12-24 09:59] VITALS: BP 106/62
[2020-01-05] MEDS ORDERED: VITA1CAP25 PO (15:23)
[2020-01-05] MEDS ORDERED: OMEP40CA97 PO (15:23)
[2020-01-05] MEDS ORDERED: BUDE3CAP PO (15:23)
== END 2019-12-24 10:00 | disposition home or self-care (01) ==
LOC: M INFU 07:42
PROVIDERS: ATTEND Internal Medicine Hematology & Oncology
DX: K50.90 Crohn's disease, unspecified, without complications (principal); D50.9 Iron deficiency anemia, unspecified
CPT/HCPCS: 96365; J1756

== ENCOUNTER 2019-12-31 15:11 | Outpatient (CLI) | payer BC ==
[~2019-12-31] VITALS: Ht 175.3 cm; Wt 70.5 kg
[~2019-12-31 15:11] MED LIST changes: -ACETAMINOPHEN TAB 650MG DOSE (2X325MG) PO ONE; -IRON SUCROSE 200 MG in NS 100 ML OVER 1 HR IV ONE; -diphenhydrAMINE 25MG CAP PO ONE
[2019-12-31 15:16] VITALS: BP 114/71
[2019-12-31] MEDS: diphenhydrAMINE 25 MG PO PO ONE (15:45)
[2019-12-31] MEDS: IRON SUCROSE 200 MG in NS 100 ML OVER 1HR IV ONE (15:45)
[2019-12-31] MEDS: ACETAMINOPHEN 650 MG PO PO ONE (15:45)
[2020-01-05] MEDS ORDERED: BUDE3CAP PO (15:23)
[2020-01-05] MEDS ORDERED: VITA1CAP25 PO (15:23)
[2020-01-05] MEDS ORDERED: OMEP40CA97 PO (15:23)
== END 2019-12-31 17:10 | disposition home or self-care (01) ==
LOC: M INFU 15:11
PROVIDERS: ATTEND Internal Medicine Hematology & Oncology
DX: D50.9 Iron deficiency anemia, unspecified (principal); K50.90 Crohn's disease, unspecified, without complications
CPT/HCPCS: 96365; J1756

== ENCOUNTER 2020-01-07 15:14 | Outpatient (CLI) | payer BC ==
[~2020-01-07] VITALS: Ht 172.7 cm; Wt 72.2 kg
[~2020-01-07 15:14] MED LIST changes: +BUDE3CAP PO; +OMEP40CA97 PO; +VITA1CAP25 PO
[2020-01-07 15:15] VITALS: BP 127/79
[2020-01-07] MEDS ORDERED: ACETAMINOPHEN 650 MG PO PO ONE (15:30)
[2020-01-07] MEDS ORDERED: diphenhydrAMINE 25 MG PO PO ONE (15:30)
[2020-01-07] MEDS: IRON SUCROSE 200 MG in NS 100 ML OVER 1 HR IV ONE (15:42)
[2020-01-07 17:13] VITALS: BP 129/82
== END 2020-01-07 17:15 | disposition home or self-care (01) ==
LOC: M INFU 15:14
PROVIDERS: ATTEND Internal Medicine Hematology & Oncology
DX: D50.9 Iron deficiency anemia, unspecified (principal); K50.90 Crohn's disease, unspecified, without complications
CPT/HCPCS: 96365; J1756

== ENCOUNTER → 2020-05-27 | Outpatient (REF) | payer BC ==
[2020-05-27 16:25] LABS: BASO % 0.6 % (0.0-1.0); EOS # 0.1 10^3/uL (0.0-0.5); EOS % 1.5 % (0.0-3.0); HEMATOCRIT 40.6 % (42.0-52.0); LYMPH # 3.4 10^3/uL (1.5-5.0); LYMPH % 47.3 % (24.0-44.0); MEAN CORPUSCULAR HEMOGLOBIN 23.9 pg (27.0-33.0); MEAN CORPUSCULAR HGB CONC 29.6 g/dl (32.0-36.5); MEAN CORPUSCULAR VOLUME 80.9 fl (80.0-96.0); MONO # 0.7 10^3/uL (0.0-0.8); MONO % 9.7 % (2.0-8.0); NEUTROPHILS # 2.9 10^3/uL (1.5-8.5); NEUTROPHILS % 40.8 % (36.0-66.0); PLATELET COUNT, AUTOMATED 199 10^3/uL (150-450); RED BLOOD COUNT 5.02 10^6/uL (4.30-6.10); WHITE BLOOD COUNT 7.1 10^3/uL (4.0-10.0)
[2020-05-27 16:57] LABS: ALBUMIN 3.3 GM/DL (3.2-5.2); ALT/SGPT 15 U/L (12-78); BILIRUBIN,TOTAL 0.4 MG/DL (0.2-1.0); BLOOD UREA NITROGEN 9 MG/DL (7-18); CALCIUM LEVEL 8.9 MG/DL (8.5-10.1); CARBON DIOXIDE LEVEL 31 MEQ/L (21-32); CHLORIDE LEVEL 104 MEQ/L (98-107); CREATININE FOR GFR 1.03 MG/DL (0.70-1.30); GLOMERULAR FILTRATION RATE > 60.0 (>60); GLUCOSE, FASTING 83 MG/DL (70-100); IRON (FE) 23 UG/DL (65-175); LDH LACTATE DEHYDROGENASE 158 U/L (87-241); PERCENT SATURATION 6.3 % (19.7-50.0); POTASSIUM SERUM 4.1 MEQ/L (3.5-5.1); SODIUM LEVEL 140 MEQ/L (136-145); TOTAL IRON BINDING CAPACITY 368 UG/DL (250-450)
== END ==
LOC: M SFHCCLAY 13:59
PROVIDERS: ATTEND Family Medicine
DX: D64.9 Anemia, unspecified (principal); D69.6 Thrombocytopenia, unspecified; K50.811 Crohn's disease of both small and large intestine with rectal bleeding

== ENCOUNTER → 2020-06-10 | Outpatient (REF) | payer BC ==
[2020-06-10 16:17] LABS: BASO % 0.1 % (0.0-1.0); EOS % 0.3 % (0.0-3.0); HEMATOCRIT 40.1 % (42.0-52.0); LYMPH # 3.1 10^3/uL (1.5-5.0); MEAN CORPUSCULAR HEMOGLOBIN 23.9 pg (27.0-33.0); MEAN CORPUSCULAR HGB CONC 29.9 g/dl (32.0-36.5); MEAN CORPUSCULAR VOLUME 79.7 fl (80.0-96.0); MONO # 0.6 10^3/uL (0.0-0.8); MONO % 7.9 % (2.0-8.0); NEUTROPHILS # 3.8 10^3/uL (1.5-8.5); NEUTROPHILS % 50.4 % (36.0-66.0); PLATELET COUNT, AUTOMATED 206 10^3/uL (150-450); RED BLOOD COUNT 5.03 10^6/uL (4.30-6.10); WHITE BLOOD COUNT 7.6 10^3/uL (4.0-10.0)
[2020-06-10 16:22] LABS: ALBUMIN 3.3 GM/DL (3.2-5.2); ALT/SGPT 13 U/L (12-78); BILIRUBIN,DIRECT 0.1 MG/DL (0.0-0.2); BILIRUBIN,TOTAL 0.4 MG/DL (0.2-1.0); BLOOD UREA NITROGEN 7 MG/DL (7-18); C REACTIVE PROTEIN QUANTITATIV 1.09 MG/DL (0.00-0.30); CREATININE FOR GFR 0.85 MG/DL (0.70-1.30); GLOMERULAR FILTRATION RATE > 60.0 (>60); TOTAL PROTEIN 7.2 GM/DL (6.4-8.2)
[2020-06-10 17:09] LABS: ERYTHROCYTE SEDIMENTATION RATE 32 mm/hr (0-15)
== END ==
LOC: M LABDRAWC 15:52
PROVIDERS: ATTEND Internal Medicine Gastroenterology
DX: K50.111 Crohn's disease of large intestine with rectal bleeding (principal); R19.7 Diarrhea, unspecified

== ENCOUNTER → 2020-06-16 | Outpatient (CLI) | payer BC ==
[~2020-06-16] MED LIST changes: +E-Z-GAS II EFFERVESCENT PACKET (SODIUM BICARB./CITRIC ACID/SIMETHICONE) As Ordered ONE; +E-Z-HD 98% w/w 340GM SUSP BTL As Ordered ONE; +E-Z-PAQUE 96% w/w SUSP 176GM BTL As Ordered ONE
--- NOTE | 2020-06-16 18:11 | REP ---
INDICATION: CROHNS DISEASE. COMPARISON: Upper GI dated 07/16/2014 TECHNIQUE: This procedure was performed by LUIS MANUEL Pelletier, under the direct supervision of Dr. Cruz. Images were reviewed with Dr. Cruz prior to dictation. Liquid barium and gas producing crystals were given in the erect position, as well as liquid barium in the prone oblique position in order to perform a double contrast upper GI examination. Additionally liquid barium was given at the end of the examination in order to perform a small-bowel follow-through. FINDINGS: The billet straightener film shows no organomegaly or pathological masses. The intestinal gas pattern is unremarkable. The oral and pharyngeal stages of deglutition were unremarkable. Esophageal transport is prompt and efficient and there is no evidence of esophagitis, stricture, or mucosal ring. There is no evidence of a hiatal hernia. Gastroesophageal reflux was visualized to the level of the reyes. The stomach salcedo are normally outlined. The rugal folds are smooth and regular. There is no gastritis, neoplasm, or ulcerative disease. Again visualized is a nodular lobulated filling defect at the base of the duodenal bulb, focal mucosal thickening or a polyp should be considered. 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 The duodenum and the jejunum are all located in the right abdomen. The mucosal folds are smooth and regular. There is no duodenitis, peptic ulcer disease or neoplasm. The visualized portion of the proximal small bowel appears normal in course and caliber. The barium column was followed through the small bowel to the level of the terminal ileum. Small bowel transit time is approximately 190 minutes. During fluoroscopy gentle palpation shows all loops are freely movable and pliable. There is no fixed angulated loops. The small bowel mucosal pattern is normal in course and caliber. There is no transition to suggest a partial small bowel obstruction. The ileocecal valve is located in upper abdomen centrally. Spot filming of the terminal ileum shows it to be unremarkable. IMPRESSION: 1. Gastroesophageal reflux to the level of the reyes. 2. Again visualized is a stable nodular lobulated filling defect at the base of the duodenum as described above. 3. 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 0.5 minutes of fluoroscopy time was utilized for this procedure. Some fluoroscopic images are performed with last image hold technology. These images require no additional radiation. <Electronically signed by Sisi Renteria > 06/16/20 1712 <Electronically signed by Nader Cruz > 06/16/20 1806
== END ==
LOC: M RAD 07:49
PROVIDERS: ATTEND Internal Medicine Gastroenterology
DX: K50.111 Crohn's disease of large intestine with rectal bleeding (principal); K21.9 Gastro-esophageal reflux disease without esophagitis

== ENCOUNTER → 2020-06-28 | Outpatient (REF) | payer BC ==
[~2020-06-28] MED LIST changes: -E-Z-GAS II EFFERVESCENT PACKET (SODIUM BICARB./CITRIC ACID/SIMETHICONE) As Ordered ONE; -E-Z-HD 98% w/w 340GM SUSP BTL As Ordered ONE; -E-Z-PAQUE 96% w/w SUSP 176GM BTL As Ordered ONE; +FOLI400T13 PO; +INFL100I IV; +METH2.5T48 PO
[2020-06-28 16:32] LABS: BASO # 0.1 10^3/uL (0.0-0.2); BASO % 1.2 % (0.0-1.0); EOS # 0.1 10^3/uL (0.0-0.5); EOS % 2.1 % (0.0-3.0); HEMATOCRIT 37.4 % (42.0-52.0); HEMOGLOBIN 11.2 g/dl (13.5-17.5); LYMPH # 1.9 10^3/uL (1.5-5.0); LYMPH % 45.4 % (24.0-44.0); MEAN CORPUSCULAR HEMOGLOBIN 23.2 pg (27.0-33.0); MEAN CORPUSCULAR HGB CONC 29.9 g/dl (32.0-36.5); MEAN CORPUSCULAR VOLUME 77.4 fl (80.0-96.0); MONO # 0.5 10^3/uL (0.0-0.8); MONO % 12.7 % (2.0-8.0); NEUTROPHILS # 1.6 10^3/uL (1.5-8.5); NEUTROPHILS % 38.1 % (36.0-66.0); PLATELET COUNT, AUTOMATED 276 10^3/uL (150-450); RED BLOOD COUNT 4.83 10^6/uL (4.30-6.10); WHITE BLOOD COUNT 4.3 10^3/uL (4.0-10.0)
== END ==
LOC: M LABDRAWC 16:01
PROVIDERS: ATTEND Internal Medicine Gastroenterology
DX: K50.111 Crohn's disease of large intestine with rectal bleeding (principal); R19.7 Diarrhea, unspecified

== ENCOUNTER 2020-06-30 13:02 | Outpatient (CLI) | payer BC ==
[~2020-06-30] VITALS: Ht 172.7 cm; Wt 70.0 kg
[2020-06-30] VITALS (8 sets, daily range): BP systolic 117–135; BP diastolic 66–84
[~2020-06-30 13:02] MED LIST changes: +ACETAMINOPHEN 650MG PO PRIOR TO INFUSION PO ONE; -FOLI400T13 PO; -INFL100I IV; +INFLIXIMAB BIOSIMILAR 300 MG in NS 220 ML IV ONE; -METH2.5T48 PO; +NS 1,000 ML IV SCH
[2020-06-30] MEDS ORDERED: FOLI400T13 PO (14:11)
[2020-06-30] MEDS ORDERED: INFL100I IV (14:11)
[2020-06-30] MEDS ORDERED: METH2.5T48 PO (14:11)
== END 2020-06-30 16:15 | disposition home or self-care (01) ==
LOC: M INFU 13:02
PROVIDERS: ATTEND Internal Medicine Gastroenterology
DX: K50.90 Crohn's disease, unspecified, without complications (principal); Z91.030 Bee allergy status
CPT/HCPCS: 96365; 96366; Q5103

== ENCOUNTER → 2020-07-14 | Outpatient (REF) | payer BC ==
[~2020-07-14] MED LIST changes: -ACETAMINOPHEN 650MG PO PRIOR TO INFUSION PO ONE; +FOLI400T13 PO; +INFL100I IV; -INFLIXIMAB BIOSIMILAR 300 MG in NS 220 ML IV ONE; +METH2.5T48 PO; -NS 1,000 ML IV SCH
[2020-07-14 17:58] LABS: BASO % 0.6 % (0.0-1.0); EOS # 0.1 10^3/uL (0.0-0.5); EOS % 1.2 % (0.0-3.0); HEMATOCRIT 38.2 % (42.0-52.0); HEMOGLOBIN 11.4 g/dl (13.5-17.5); LYMPH # 2.8 10^3/uL (1.5-5.0); LYMPH % 40.9 % (24.0-44.0); MEAN CORPUSCULAR HEMOGLOBIN 23.3 pg (27.0-33.0); MEAN CORPUSCULAR HGB CONC 29.8 g/dl (32.0-36.5); MEAN CORPUSCULAR VOLUME 78.1 fl (80.0-96.0); MONO # 0.6 10^3/uL (0.0-0.8); MONO % 8.8 % (2.0-8.0); NEUTROPHILS # 3.3 10^3/uL (1.5-8.5); NEUTROPHILS % 48.2 % (36.0-66.0); PLATELET COUNT, AUTOMATED 296 10^3/uL (150-450); RED BLOOD COUNT 4.89 10^6/uL (4.30-6.10); WHITE BLOOD COUNT 6.8 10^3/uL (4.0-10.0)
[2020-07-14 18:07] LABS: ALBUMIN 3.3 GM/DL (3.2-5.2); ALT/SGPT 10 U/L (12-78); BILIRUBIN,DIRECT 0.1 MG/DL (0.0-0.2); BILIRUBIN,TOTAL 0.4 MG/DL (0.2-1.0); BLOOD UREA NITROGEN 9 MG/DL (7-18); CREATININE FOR GFR 0.98 MG/DL (0.70-1.30); GLOMERULAR FILTRATION RATE > 60.0 (>60); IRON (FE) 18 UG/DL (65-175); PERCENT SATURATION 5.6 % (19.7-50.0); TOTAL IRON BINDING CAPACITY 320 UG/DL (250-450); TOTAL PROTEIN 6.9 GM/DL (6.4-8.2)
== END ==
LOC: M LABDRAWC 15:44
PROVIDERS: ATTEND Internal Medicine Gastroenterology
DX: K50.111 Crohn's disease of large intestine with rectal bleeding (principal); R19.7 Diarrhea, unspecified

== ENCOUNTER 2020-08-05 13:15 | Inpatient (IN) | payer BC ==
[~2020-08-05] VITALS: Ht 172.7 cm; Wt 60.7 kg
[~2020-08-05 13:15] MED LIST changes: +SODIUM CHLORIDE 0.9% 1000ML IV SCH
[2020-08-05] MEDS ORDERED: NAPR220C14 PO (13:20)
[2020-08-05] MEDS ORDERED: ONDANSETRON 4MG/2ML VIAL IV ONE (14:45)
[2020-08-05] MEDS ORDERED: NS 1,000 ML IV ONE (14:45)
[2020-08-05 15:19] LABS: BASO % 0.7 % (0.0-1.0); EOS # 0.1 10^3/uL (0.0-0.5); EOS % 0.8 % (0.0-3.0); HEMATOCRIT 34.9 % (42.0-52.0); HEMOGLOBIN 10.7 g/dl (13.5-17.5); LYMPH # 1.8 10^3/uL (1.5-5.0); LYMPH % 30.3 % (24.0-44.0); MEAN CORPUSCULAR HEMOGLOBIN 22.7 pg (27.0-33.0); MEAN CORPUSCULAR HGB CONC 30.7 g/dl (32.0-36.5); MEAN CORPUSCULAR VOLUME 73.9 fl (80.0-96.0); MONO # 0.5 10^3/uL (0.0-0.8); MONO % 9.1 % (2.0-8.0); NEUTROPHILS # 3.5 10^3/uL (1.5-8.5); NEUTROPHILS % 58.8 % (36.0-66.0); PLATELET COUNT, AUTOMATED 352 10^3/uL (150-450); RED BLOOD COUNT 4.72 10^6/uL (4.30-6.10); WHITE BLOOD COUNT 5.9 10^3/uL (4.0-10.0)
[2020-08-05 15:51] LABS: ALBUMIN 2.3 GM/DL (3.2-5.2); ALT/SGPT 7 U/L (12-78); AMYLASE 18 U/L (25-115); BILIRUBIN,DIRECT 0.1 MG/DL (0.0-0.2); BILIRUBIN,TOTAL 0.3 MG/DL (0.2-1.0); BLOOD UREA NITROGEN 13 MG/DL (7-18); CALCIUM LEVEL 8.2 MG/DL (8.5-10.1); CARBON DIOXIDE LEVEL 29 MEQ/L (21-32); CHLORIDE LEVEL 100 MEQ/L (98-107); CREATININE FOR GFR 1.14 MG/DL (0.70-1.30); GLOMERULAR FILTRATION RATE > 60.0 (>60); GLUCOSE, FASTING 84 MG/DL (70-100); LIPASE 47 U/L (73-393); POTASSIUM SERUM 3.9 MEQ/L (3.5-5.1); SODIUM LEVEL 136 MEQ/L (136-145)
[2020-08-05] MEDS ORDERED: ISOVUE-370 76% 100ML VIAL As Ordered ONE (16:11)
--- NOTE | 2020-08-05 18:06 | REPVR ---
PROCEDURE INFORMATION: Exam: CT Abdomen And Pelvis With Contrast Exam date and time: 08/05/2020 2:44 PM Age: 25 years old Clinical indication: Vomiting; Additional info: Vomiting, crohns TECHNIQUE: Imaging protocol: Computed tomography of the abdomen and pelvis with contrast. Radiation optimization: All CT scans at this facility use at least one of these dose optimization techniques: automated exposure control; mA and/or kV adjustment per patient size (includes targeted exams where dose is matched to clinical indication); or iterative reconstruction. Contrast material: ISOVUE 370; Contrast volume: 100 ml; Contrast route: INTRAVENOUS (IV); COMPARISON: CT ABD PELVIS WITH CONTRAST 12/02/2015 6:27 PM FINDINGS: Liver: 3 mm simple cyst segment 2 left lobe of the liver. Liver otherwise unremarkable. Gallbladder and bile ducts: Normal. No calcified stones. No ductal dilation. Pancreas: Normal. No ductal dilation. Spleen: Normal. No splenomegaly. Adrenal glands: Normal. No mass. Kidneys and ureters: Normal. No hydronephrosis. Stomach and bowel: There is a diffusely boggy appearance of the distal transverse, left, sigmoid colon and rectum with mural stratification and an ahasutral countour. There are pericolonic inflammatory changes. Findings consistent with acute colitis. No abscess demonstrated. Appendix: No evidence of appendicitis. Intraperitoneal space: Unremarkable. No free air. No significant fluid collection. Vasculature: Unremarkable. No abdominal aortic aneurysm. Lymph nodes: Unremarkable. No enlarged lymph nodes. Urinary bladder: Unremarkable as visualized. Reproductive: Unremarkable as visualized. Bones/joints: Severe central spinal stenosis L4-L5. Soft tissues: Unremarkable. IMPRESSION: There is a diffusely boggy appearance of the distal transverse, left, sigmoid colon and rectum with mural stratification and an ahasutral countour. There are pericolonic inflammatory changes. Findings consistent with acute colitis. No abscess demonstrated. Electronically signed by: Magdaleno Emery On 08/05/2020 18:05:41 PM
[2020-08-05] MEDS ORDERED: methylPREDNISolone 40MG 1ML VIAL IV ONE (18:55)
[2020-08-05] MEDS ORDERED: CIPROFLOXACIN 400 MG in IV 1 EA IV ONE (18:55)
[2020-08-05] MEDS ORDERED: metroNIDAZOLE 500 MG in IV 1 EA IV ONE (18:55)
[2020-08-05] MEDS ORDERED: ACETAMINOPHEN TAB 650MG DOSE (2X325MG) PO ONE (18:55)
[2020-08-05] MEDS ORDERED: FOLI1TAB11 PO (19:13)
--- NOTE | 2020-08-05 20:19 | HPEPDOC ---
[facility] Medical History & Physical Date of Admission August 05, 2020 Date of Service: August 05, 2020 Primary Care Physician: Milan Jones MD Attending Physician: JUAN LUIS RICHARDS MD History and Physical CHIEF COMPLAINT: fever, diarrhea HISTORY OF PRESENT ILLNESS: Ramiro Abrams Jr is a 25 year old male who presented to the ED today due to 3 days of diarrhea, vomiting, fever. He has a history of Crohn's disease and states he is "always in a flare" due to his ongoing diarrhea. He has lost 70lbs in the past year. He states he tried to eat constantly to keep his calories up as much as possible. However, over the past 3 days he has had worsening of his Crohn's disease symptoms including worsening diarrhea and generalized abdominal pain. He states he has been vomiting up food he has eaten. He also reports fevers up to 101.5F at home. He reports an episode of bloody diarrhea today. He does have a history of anemia which has required iron transfusions but he has never required a blood transfusion. He states he was last on prednisone about a year ago and has also been on budesonide since. He is currently on methotrexate and infliximab He was previously seen at [facility] in [place]. He has since established care with Dr. Rodriguez locally. REVIEW OF SYSTEMS: CONSTITUTIONAL: Per HPI HEENT: Denies change in vision, change in hearing. CARDIOVASCULAR: Denies chest pain, palpitations, lightheadedness. RESPIRATORY: Denies cough, wheezing. GASTROINTESTINAL: Per HPI. GENITOURINARY: Denies dysuria, urinary frequency, urinary urgency. SKIN: Denies rash, lesions. MUSCULOSKELETAL: Denies new joint pain or muscle aches. NEUROLOGICAL: Denies headache, dizziness, weakness. PSYCHIATRIC: Denies change in mood. PAST MEDICAL/SURGICAL HISTORY: Crohn's disease on methotrexate and infliximab, ITP, Duodenal atresia repair SOCIAL HISTORY: Never smoker. Very occasional alcohol use. No illicit substance use. FAMILY HISTORY: No family hx of IBD or GI malignancies ALLERGIES: Please see below. HOME MEDICATIONS: Please see below. PHYSICAL EXAMINATION: VITAL SIGNS: See below GENERAL: Alert, comfortable, in no acute distress HEENT: Normocephalic, atraumatic, sclera anicteric, moist mucous membranes NECK: Supple, trachea midline, no lymphadenopathy CARDIOVASCULAR: Regular rate and rhythm, normal S1 and S2. No murmurs, rubs, or gallops RESPIRATORY: Clear to auscultation bilaterally with equal air entry bilaterally. No wheezing, rhonchi, or rales. ABDOMEN: Soft, nondistended, bowel sounds present. Mildly tender to deep palpation without guarding, rigidity, or rebound tenderness. EXTREMITIES: No cyanosis or edema. Pulses 2+/4 in bilateral upper and lower extremities SKIN: [place], warm, dry NEUROLOGIC: Alert and oriented x3 to person, place and time. No focal deficits appreciated PSYCHIATRIC: Mood and affect appropriate LABORATORY DATA: See below. IMAGING: - CT abdomen/pelvis There is a diffusely boggy appearance of the distal transverse, left, sigmoid colon and rectum with mural stratification and an ahaustral contour. There are pericolonic inflammatory changes. Findings consistent with acute colitis. No abscess demonstrated. MICROBIOLOGY: Please see below. ASSESSMENT: 25 year old male with a history of Crohn's disease and ITP presented to the ED with worsening diarrhea, vomiting, fevers, admitted for management of colitis secondary to acute flare of Crohn's disease vs infectious colitis PLAN: # Colitis 2/2 acute flare of Crohn's disease vs infectious - GI panel negative, no c diff infection. Cannot rule out infectious with fever, although this could be reactive - IV antibiotics noted below to cover for infectious - IV steroids with solumedrol 60mg IV daily - continue home methotrexate - Clear liquid diet, advance as tolerated to low fiber diet. Supplement meals with boost - tylenol for pain/fever. zofran for nausea. - No current GI coverage. Discussed case with GI car electronics installer at [facility] ([facility]), no further recommendations given for his acute care. Day team may be able to contact Dr. Rodriguez for additional recommendations. # Sepsis 2/2 infectious colitis vs IBD reactive changes - SIRS criteria 2/4 met with fever, tachycardia. - qSOFA score 0, not high risk - s/p 1L NS given in the ED, will give an additional 1L bolus to achieve at least 30ml/kg - suspected source colitis given CT findings. GI panel negative - blood cultures x2 pending. lactic acid level normal. - IV abx with cipro/flagyl day #1 - monitor on telemetry # Microcytic anemia, chronic vs acute on chronic - know chronic anemia with hx iron transfusions. check iron studies - possible acute component with reported hematochezia. - monitor CBC. transfuse for Hg<7 or if patient becomes symptomatic # ITP - pt states he follow with electric brain wave equipment mechanic, no current treatment - due to national shortage will hold off on checking PT and aPTT, as he currently has a normal platelet count and no large volume bleeding. If his platelet count drops or he has more bleeding would recommend checking coagulation studies. - monitor CBC daily DVT prophylaxis: TEDs and SCDs. given possible GI bleed will not give chemical prophylaxis Disposition: will need at least 2 midnight's stay Vital Signs Vital Signs Date Time Temp Pulse Resp B/P (MAP) Pulse Ox O2 Delivery O2 Flow Rate FiO2 08/05/20 18:41 101.1 89 18 119/72 (88) 99 Room Air Laboratory Data Labs 24H Laboratory Tests 2 08/05/20 15:00: Immature Granulocyte % (Auto) 0.3, Neutrophils (%) (Auto) 58.8, Lymphocytes (%) (Auto) 30.3, Monocytes (%) (Auto) 9.1H, Eosinophils (%) (Auto) 0.8, Basophils (%) (Auto) 0.7, Neutrophils # (Auto) 3.5, Lymphocytes # (Auto) 1.8, Monocytes # (Auto) 0.5, Eosinophils # (Auto) 0.1, Basophils # (Auto) 0.0, Nucleated Red Blood Cells % (auto) 0.0, Anion Gap 7L, Glomerular Filtration Rate > 60.0, Lactic Acid Level 1.0, Calcium Level 8.2L, Total Bilirubin 0.3, Direct Bilirubin 0.1, Aspartate Amino Transf (AST/SGOT) 7, Alanine Aminotransferase (ALT/SGPT) 7L, Alkaline Phosphatase 62, Total Protein 6.0L, Albumin 2.3L, Albumin/Globulin Ratio 0.6, Amylase Level 18L, Lipase 47L CBC/BMP Laboratory Tests 08/05/20 15:00 Microbiology Microbiology 08/05/20 Gastrointestinal Tract Panel (PCR) - Final, Complete 08/05/20 Respiratory Virus Panel (PCR) (DARYL) - Final, Complete 08/05/20 Blood Culture, Received Pending 08/05/20 Blood Culture, Received Pending Home Medications Scheduled Folic Acid (Folic Acid) 1 Mg Tablet, 1 MG PO DAILY Infliximab Biosimilar (Inflectra) 100 Mg Vial, 300 MG IV Q6WKS DUE Sunday08/11/20 Mesalamine (Mesalamine) 1.2 Gm Tablet.dr, 4.8 GM PO DAILY Methotrexate Sodium (Methotrexate) 2.5 Mg Tablet, 12.5 MG PO QWEEK MONDAYS Multivitamin (Multi-Vitamin Daily) 1 Each Tablet, 1 TAB PO DAILY Omeprazole (Omeprazole) 40 Mg Capsule.dr, 40 MG PO DAILY Prednisone (Prednisone) 50 Mg Tablet, 50 MG PO DAILY Sulfamethoxazole/Trimethoprim (Sulfamethoxazole-Tmp Ds Tablet) 1 Each Tablet, 1 TAB PO DAILY for PCP prophylaxis Allergies Coded Allergies: bee venom protein (honey bee) (Verified Allergy, Unknown, 09/23/19) GME ATTESTATION GME ATTESTATION My faculty preceptor for this patient encounter was physically present during the encounter and was fully available. All aspects of the patient interview, examination, medical decision making process, and medical care plan development were reviewed and approved by the faculty preceptor. The faculty preceptor is aware and concurs with the plan as stated in the body of this note and will attest to such by his/her cosignature. ATTENDING NOTE Time of service 820pm is a 25 yr old w ITP and Crohn's (has not achieved remission despite Inflixamab & MTX) who came to the hospital bc he developed vomiting and fever; admitting diagnoses include: # Sepsis 2/2 Acute Crohn's colitis # Microcytic anemia # Protein calorie malnutrition Plan: He received IVF, and abx in the ER and his GI panel was neg. We will c/w IVF, Ciprofloxacin + Metronidazole, check CRP, fecal calprotectin & pre-albumin and try and touch base with or GI at [facility] to see if the patient should be switched to Ustekinumab monotherapy or Vedolizumab monotherapy. He declined referral to a IBD support group but is open to discussing strategies to optimize his diet & protein intake with a heel slicker. Pending iron studies we will start Venofer (it is unlikely that he will be able to absorb enough iron through his diet). Rest per 's H&P FLAKO MULLEN DGala August 05, 2020 20:19 JUAN LUIS RICHARDS MD August 05, 2020 22:28
[2020-08-05] MEDS ORDERED: ONDANSETRON 4MG/2ML VIAL IV PRN (21:10)
[2020-08-05 21:14] LABS: PERCENT SATURATION 6.1 % (19.7-50.0)
[2020-08-05 21:47] LABS: FERRITIN 67 NG/ML (26-388); IRON (FE) 10 UG/DL (65-175); TOTAL IRON BINDING CAPACITY 165 UG/DL (250-450)
[2020-08-05 22:13] VITALS: BP 121/73
[2020-08-05] MEDS ORDERED: IRON SUCROSE 100MG 5ML VIAL (J1756 PER 1MG) IV SCH (22:30)
[2020-08-05 22:37] LABS: C REACTIVE PROTEIN QUANTITATIV 9.37 MG/DL (0.00-0.30)
[2020-08-05] MEDS ORDERED: IRON SUCROSE 100 MG in NS 100 ML IV ONE (23:30)
[2020-08-06 01:00] VITALS: BP 109/65
[2020-08-06 02:15] VITALS: BP 139/73
[2020-08-06] MEDS: D5W/0.9% SODIUM CHLORIDE 1,000 ML IV SCH ×3 (02:37→18:07)
[2020-08-06 02:45] VITALS: BP 104/63
[2020-08-06] MEDS: metroNIDAZOLE 500 MG in IV 1 EA IV SCH ×3 (04:58→19:54)
[2020-08-06 06:00] VITALS: BP 112/63
[2020-08-06 06:00] LABS: HEMOGLOBIN 9.7 g/dl (13.5-17.5); MEAN CORPUSCULAR HEMOGLOBIN 22.5 pg (27.0-33.0); MEAN CORPUSCULAR HGB CONC 30.3 g/dl (32.0-36.5); MEAN CORPUSCULAR VOLUME 74.2 fl (80.0-96.0); PLATELET COUNT, AUTOMATED 291 10^3/uL (150-450); RED BLOOD COUNT 4.31 10^6/uL (4.30-6.10)
[2020-08-06 06:17] LABS: BLOOD UREA NITROGEN 12 MG/DL (7-18); C REACTIVE PROTEIN QUANTITATIV 8.54 MG/DL (0.00-0.30); CALCIUM LEVEL 8.1 MG/DL (8.5-10.1); CARBON DIOXIDE LEVEL 27 MEQ/L (21-32); CHLORIDE LEVEL 104 MEQ/L (98-107); CREATININE FOR GFR 0.86 MG/DL (0.70-1.30); GLOMERULAR FILTRATION RATE > 60.0 (>60); GLUCOSE, FASTING 190 MG/DL (70-100); POTASSIUM SERUM 3.8 MEQ/L (3.5-5.1); SODIUM LEVEL 136 MEQ/L (136-145)
[2020-08-06] MEDS ORDERED: INFLUENZA QUADRIVALENT PF VACCINE 0.5ML SYRINGE IM ONE (09:00)
[2020-08-06] MEDS: CIPROFLOXACIN 400 MG in IV 1 EA IV SCH ×2 (09:24→21:36)
[2020-08-06] MEDS: OMEPRAZOLE 20 MG CAP PO SCH (09:24)
[2020-08-06] MEDS: FOLIC ACID 1 MG TAB PO SCH (09:24)
[2020-08-06] MEDS: MULTIVITAMINS/MINERALS THERAP 1 TAB PO SCH (09:24)
[2020-08-06] MEDS: methylPREDNISolone 125MG 2ML VIAL IV SCH (09:24)
[2020-08-06] MEDS: ACETAMINOPHEN TAB 650MG DOSE (2X325MG) PO PRN ×2 (09:27→21:42)
[2020-08-06] MEDS: IRON SUCROSE 100 MG in NS 100 ML IV SCH (11:22)
--- NOTE | 2020-08-06 11:49 | IPNPDOC ---
Text Note Date of Service The patient was seen on 08/06/20. NOTE S: The patient states that he still had at least 7 bowel movements with bloody diarrhea since his visit to the hospital last night. He is still nauseated but has not vomited since yesterday. He feels he has no appetite for food but that is a chronic issue for him anyway. He reports feeling particularly queasy while passing his bowels. Otherwise his abdominal pain has resolved and he has not experienced any abdominal cramps. No other complain as of this morning. GENERAL: Alert, comfortable, in no acute distress HEENT: Normocephalic, atraumatic, sclera anicteric, moist mucous membranes NECK: Supple, trachea midline, no lymphadenopathy CARDIOVASCULAR: Regular rate and rhythm, normal S1 and S2. No murmurs, rubs, or gallops RESPIRATORY: Clear to auscultation bilaterally with equal air entry bilaterally. No wheezing, rhonchi, or rales. ABDOMEN: Soft, nondistended, bowel sounds present. Mildly tender to deep palpation without guarding, rigidity, or rebound tenderness. EXTREMITIES: No cyanosis or edema. Pulses 2+/4 in bilateral upper and lower extremities SKIN: [place], warm, dry NEUROLOGIC: Alert and oriented x3 to person, place and time. No focal deficits appreciated PSYCHIATRIC: Mood and affect appropriate ASSESSMENT AND PLAN: Ramiro Abrams Jr is a 25 year old male who presented to the ED today due to 3 days of diarrhea, vomiting, fever. He has a history of Crohn's disease and states he is "always in a flare" due to his ongoing diarrhea. He has lost 70lbs in the past year. He states he tried to eat constantly to keep his calories up as much as possible. However, over the past 3 days he has had worsening of his Crohn's disease symptoms including worsening diarrhea and generalized abdominal pain. He states he has been vomiting up food he has eaten. He also reports fevers up to 101.5F at home. He reports an episode of bloody diarrhea today. He does have a history of anemia which has required iron transfusions but he has never required a blood transfusion. 1.Colitis secondary to Crohn's or infectious etiology: -Pt has been checked for Cdifficile infection -negative. -Patient's GI panel came back negative. -We continue the patient on empiric coverage by IV Ciprofloxacin and i/v metronidazole until we rule out any infectious source. -Patient has not had any fevers and his white count is normal. -He has been progress to regular diet as tolerated. -For his Crohn's we continue him on methotrexate. -He continues on IV methylprednisolone 60 mg. -We're going to observe him to notice any improvement. On occasion patient not improving, we will order further tests to rule out any unusual infectious etiology. 2.Chronic Microcytic Anemia secondary to Crohn's: -Pt is on I/V Iron infusion 100 mg. -Going to follow patient's H&H. Today's hemoglobin is 9.7 with a hematocrit of 32. -Patient asymptomatic from anemia. -Patient was also put on GI prophylaxis. He's on omeprazole 40 mg by mouth twice a day. 3. Idiopathic cytopenic purpura: -We will continue to monitor patient's platelets. -Today's platelets are 291. VS,Fishbone, I+O VS, Fishbone, I+O Laboratory Tests 08/05/20 15:00 08/06/20 05:01 Vital Signs Date Time Temp Pulse Resp B/P (MAP) Pulse Ox O2 Delivery O2 Flow Rate FiO2 08/06/20 06:00 97.2 51 16 112/63 (79) 99 Room Air I&O- Last 24 Hours up to 6 AM 08/06/20 06:00 Intake Total 3646 ml Output Total 375 ml Balance 3271 ml GME ATTESTATION GME ATTESTATION My faculty preceptor for this patient encounter was physically present during the encounter and was fully available. All aspects of the patient interview, examination, medical decision making process, and medical care plan development were reviewed and approved by the faculty preceptor. The faculty preceptor is aware and concurs with the plan as stated in the body of this note and will attest to such by his/her cosignature. ATTENDING NOTE 3. Kelly Solomon MD August 06, 2020 11:48
[2020-08-06 14:00] VITALS: BP 119/73
--- NOTE | 2020-08-06 20:38 | ECGEPIP ---
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 Order Number: [id number] Reading MD: Tenzin Verde Measurements Intervals [place] Rate: 58 P: 73 DE: 172 QRS: 83 QRSD: 96 T: 73 QT: 510 QTc: 500 Interpretive Statements Marked sinus arrhythmia, early repolarization. Prolonged QT No significant change compared with 07/15/2014. Electronically Signed on 08-06-2020 20:38:02 EDT by Tenzin Verde
[2020-08-06 22:00] VITALS: BP 132/82
[2020-08-07] MEDS: metroNIDAZOLE 500 MG in IV 1 EA IV SCH ×3 (03:18→20:15)
[2020-08-07] MEDS: D5W/0.9% SODIUM CHLORIDE 1,000 ML IV SCH ×2 (05:28→20:16)
[2020-08-07 06:00] VITALS: BP 113/62
[2020-08-07 06:21] LABS: BASO % 0.2 % (0.0-1.0); HEMATOCRIT 29.8 % (42.0-52.0); HEMOGLOBIN 9.1 g/dl (13.5-17.5); LYMPH # 1.3 10^3/uL (1.5-5.0); LYMPH % 9.8 % (24.0-44.0); MEAN CORPUSCULAR HEMOGLOBIN 22.8 pg (27.0-33.0); MEAN CORPUSCULAR HGB CONC 30.5 g/dl (32.0-36.5); MEAN CORPUSCULAR VOLUME 74.5 fl (80.0-96.0); MONO # 0.8 10^3/uL (0.0-0.8); MONO % 6.4 % (2.0-8.0); NEUTROPHILS # 10.8 10^3/uL (1.5-8.5); NEUTROPHILS % 82.8 % (36.0-66.0); PLATELET COUNT, AUTOMATED 355 10^3/uL (150-450)
[2020-08-07 06:38] LABS: BLOOD UREA NITROGEN 11 MG/DL (7-18); C REACTIVE PROTEIN QUANTITATIV 2.81 MG/DL (0.00-0.30); CARBON DIOXIDE LEVEL 29 MEQ/L (21-32); CHLORIDE LEVEL 110 MEQ/L (98-107); CREATININE FOR GFR 0.71 MG/DL (0.70-1.30); GLOMERULAR FILTRATION RATE > 60.0 (>60); GLUCOSE, FASTING 121 MG/DL (70-100); POTASSIUM SERUM 3.8 MEQ/L (3.5-5.1); SODIUM LEVEL 142 MEQ/L (136-145)
[2020-08-07] MEDS: MULTIVITAMINS/MINERALS THERAP 1 TAB PO SCH (08:38)
[2020-08-07] MEDS: FOLIC ACID 1 MG TAB PO SCH (08:38)
[2020-08-07] MEDS: methylPREDNISolone 125MG 2ML VIAL IV SCH (08:38)
[2020-08-07] MEDS: CIPROFLOXACIN 400 MG in IV 1 EA IV SCH ×2 (08:38→21:39)
[2020-08-07] MEDS: OMEPRAZOLE 20 MG CAP PO SCH (08:39)
--- NOTE | 2020-08-07 10:11 | IPNPDOC ---
Date Seen The patient was seen on 08/07/20. Progress Note SUBJECTIVE: Patient was seen and examined this morning. Overnight the patient was reportedly bradycardic although this was when he was sleeping and asymptomatic. Otherwise no adverse events were reported overnight. Patient states that he continues to have diarrhea although the frquency has decreased. He states that he has had about 6-7 episodes over the past 24 hours which is decreased from 15-20 episodes on admission. He also states that his stool is more formed and less blood. He does admit to continued cramping with bowel movements but states that the cramping is not more then his usual OBJECTIVE PHYSICAL EXAMINATION: VITAL SIGNS: Please see below. GENERAL: Awake, alert, and oriented. Appears in no acute distress. Lying in bed comfortably. HEENT: Atraumatic, normocephalic. Eyes are nonicteric. Trachea is midline. Mucous membranes are pink and moist. No oral ulcer noted CARDIOVASCULAR: Normal S1, S2. Regular rate and rhythm. No clicks rubs or murmurs. RESPIRATORY: Clear vesicular breath sounds bilaterally. Good respiratory effort. Symmetric chest expansion. No wheezes, rhonchi, or rales ABDOMINAL: Soft, nondistended. Nontender. Normoactive bowel sounds. No rebound tenderness or guarding EXTREMITIES: No edema. Full and equal pulses in bilateral upper and lower extremities. NEUROLOGICAL: No focal neurological deficits PSYCHOLOGICAL: Mood and affect appear appropriate for situation LABORATORY DATA, IMAGING STUDIES, MICROBIOLOGY: Please see below. DVT prophylaxis ordered?: Neftali and Sequentials ASSESSMENT AND PLAN: Patient is a 25 year old male with a past medical history significant for Crohn's disease with recurrent flare who presented to the [facility] ER with complaint of persistent bloody diarrhea >15 episodes a day with fever and chills. Patient currently on infliximab and methotrexate outpatient. On admission patient was started on IV solumedrol. C difficile negative. Started on empiric antibiotic coverage for possible infectious diarrhea. Diarrhea currently resolving. 6-7 episodes over the past 24 hours. PROBLEMS: 1. Colitis likely inflammatory less likely infectious -Patient with history of biopsy proven Crohn's disease. Currently on Infliximab and Methotrexate outpatient. He has had recurrent flares. Recently established with Dr. Rodriguez. Noted to have bloody diarrhea of >15 episodes a day. -Continued on Solumedrol 60 mg IV daily. Episodes decreased to 6-7 episodes over the past 24 hours. Stool noted to be more formed with less bleeding. -He will likely need slow taper of steroid at discharge. If he is continued on prison steroids with infliximab then he will need PCP prophylaxis at discharge -Less likely an infectious diarrhea. GI panel was negative for C. difficile and other common diarrheal illness. Could consider an opportunistic diarrheal illness given his history of immunosuppressants however this is unlikely. He is on Cipro and Flagyl empirically. Can consider discontinuation of this -Patient is planned to have a colonoscopy in August. Dr. Rodriguez has considered potentially doing the colonoscopy inpatient on Sunday if the patient is not discharged at that point. 2. Chronic Microcytic Anemia 2/2 to Crohn's -Patient is on iron infusions -Trending patients H&H daily -Patient is on GI prophylaxis with 40mg BID. 3. History of ITP -Patient has reported history of ITP. Not currently in ITP flare. Platelets within normal range. 4. GI prophylaxis -Prilosec 40mg daily 5. DVT prophylaxis -Teds and Sequentials given blood diarrhea and anemia DISPOSITION: Patient improving clinically. Continues to have 6-7 episodes of bloody diarrhea although resolving. Anticipate discharge in 24-48 hours GME ATTESTATION My faculty preceptor for this patient encounter was physically present during the encounter and was fully available. All aspects of the patient interview, examination, medical decision making process, and medical care plan development were reviewed and approved by the faculty preceptor. The faculty preceptor is aware and concurs with the plan as stated in the body of this note and will attest to such by his/her cosignature. ATTENDING NOTE I personally examined the patient, discussed his studies and plan with the resident physician as noted above. Mr. Abrams reports that he feels better and that his diarrhea has improved with only 7 episodes of diarrhea over the last 24h compared to the hourly watery BMs he was having prior. He desires to have the colonscopy as tentatively scheduled even if his symptoms continue to improve with the steroids and I told him that we would convey that to Dr. Rodriguez who is tentatively planning for colonoscopy on 08/09. VS, I&O, 24H, Fishbone Vital Signs/I&O Vital Signs Date Time Temp Pulse Resp B/P (MAP) Pulse Ox O2 Delivery O2 Flow Rate FiO2 08/07/20 06:00 97.1 62 20 113/62 (79) 99 Room Air I&O- Last 24 Hours up to 6 AM 08/07/20 06:00 Intake Total 2770 ml Output Total 750 ml Balance 2020 ml Laboratory Data 24H LABS Laboratory Tests 2 08/07/20 05:45: Immature Granulocyte % (Auto) 0.8, Neutrophils (%) (Auto) 82.8H, Lymphocytes (%) (Auto) 9.8L, Monocytes (%) (Auto) 6.4, Eosinophils (%) (Auto) 0.0, Basophils (%) (Auto) 0.2, Neutrophils # (Auto) 10.8H, Lymphocytes # (Auto) 1.3L, Monocytes # (Auto) 0.8, Eosinophils # (Auto) 0.0, Basophils # (Auto) 0.0, Nucleated Red Blood Cells % (auto) 0.0, Anion Gap 3L, Glomerular Filtration Rate > 60.0, Calcium Level 8.0L, C-Reactive Protein, Quantitative 2.81H CBC/BMP Laboratory Tests 08/07/20 05:45 Microbiology Microbiology 08/05/20 Gastrointestinal Tract Panel (PCR) - Final, Complete 08/05/20 Respiratory Virus Panel (PCR) (DARYL) - Final, Complete 08/05/20 Blood Culture - Preliminary, Resulted No growth after 24 hours . All specim... 08/05/20 Blood Culture - Preliminary, Resulted No growth after 24 hours . All specim... COLLIN CHAKRABORTY DO August 07, 2020 10:10 VANNA SANCHEZ MD August 07, 2020 13:08
[2020-08-07] MEDS: IRON SUCROSE 100 MG in NS 100 ML IV SCH (11:43)
[2020-08-07 14:00] VITALS: BP 140/81
[2020-08-07] MEDS: CYCLOBENZAPRINE 5MG TABLET PO PRN (16:27)
[2020-08-07 22:00] VITALS: BP 122/65
[2020-08-08] MEDS: D5W/0.9% SODIUM CHLORIDE 1,000 ML IV SCH ×3 (00:20→21:31)
[2020-08-08] MEDS: metroNIDAZOLE 500 MG in IV 1 EA IV SCH (04:42)
[2020-08-08 06:00] VITALS: BP 112/57
[2020-08-08 06:08] LABS: BASO % 0.2 % (0.0-1.0); HEMATOCRIT 30.6 % (42.0-52.0); HEMOGLOBIN 9.3 g/dl (13.5-17.5); LYMPH # 1.7 10^3/uL (1.5-5.0); LYMPH % 13.9 % (24.0-44.0); MEAN CORPUSCULAR HGB CONC 30.4 g/dl (32.0-36.5); MEAN CORPUSCULAR VOLUME 75.6 fl (80.0-96.0); MONO # 1.3 10^3/uL (0.0-0.8); MONO % 10.9 % (2.0-8.0); NEUTROPHILS # 8.9 10^3/uL (1.5-8.5); NEUTROPHILS % 73.8 % (36.0-66.0); PLATELET COUNT, AUTOMATED 360 10^3/uL (150-450); RED BLOOD COUNT 4.05 10^6/uL (4.30-6.10); WHITE BLOOD COUNT 12.1 10^3/uL (4.0-10.0)
[2020-08-08 06:24] LABS: BLOOD UREA NITROGEN 14 MG/DL (7-18); C REACTIVE PROTEIN QUANTITATIV 1.16 MG/DL (0.00-0.30); CALCIUM LEVEL 7.7 MG/DL (8.5-10.1); CARBON DIOXIDE LEVEL 30 MEQ/L (21-32); CHLORIDE LEVEL 112 MEQ/L (98-107); CREATININE FOR GFR 0.74 MG/DL (0.70-1.30); GLOMERULAR FILTRATION RATE > 60.0 (>60); GLUCOSE, FASTING 93 MG/DL (70-100); POTASSIUM SERUM 3.7 MEQ/L (3.5-5.1); SODIUM LEVEL 144 MEQ/L (136-145)
[2020-08-08] MEDS: OMEPRAZOLE 20 MG CAP PO SCH (08:48)
[2020-08-08] MEDS: FOLIC ACID 1 MG TAB PO SCH (08:48)
[2020-08-08] MEDS: MULTIVITAMINS/MINERALS THERAP 1 TAB PO SCH (08:48)
[2020-08-08] MEDS: methylPREDNISolone 125MG 2ML VIAL IV SCH (08:48)
[2020-08-08] MEDS: CIPROFLOXACIN 400 MG in IV 1 EA IV SCH (08:48)
[2020-08-08] MEDS: IRON SUCROSE 100 MG in NS 100 ML IV SCH (10:16)
--- NOTE | 2020-08-08 11:19 | IPNPDOC ---
Text Note Date of Service The patient was seen on 08/08/20. NOTE SUBJECTIVE: -No acute events or complaints overnight -Bloody diarrhea continues to improve. Of note, his BMs are not being recorded, will discuss with nursing. OBJECTIVE VITAL SIGNS: Please see below. GENERAL: Awake, alert, and oriented. Appears in no acute distress. Lying in bed comfortably. HEENT: Atraumatic, normocephalic. Eyes are nonicteric. Trachea is midline. Mucou s membranes are pink and moist. No oral ulcer noted CARDIOVASCULAR: Normal S1, S2. Regular rate and rhythm. No clicks rubs or murmurs. RESPIRATORY: Clear vesicular breath sounds bilaterally. Good respiratory effort. Symmetric chest expansion. No wheezes, rhonchi, or rales ABDOMINAL: Soft, nondistended. Nontender. Normoactive bowel sounds. No rebound tenderness or guarding EXTREMITIES: No edema. Full and equal pulses in bilateral upper and lower extremities. NEUROLOGICAL: No focal neurological deficits PSYCHOLOGICAL: Mood and affect appear appropriate for situation LABORATORY DATA: Reviewed WBC 12.1 hgb 9.3 platelets 360 na 144 K 3.7 Cr 0.74 DVT prophylaxis ordered?: Neftali and Sequentials ASSESSMENT AND PLAN: 25 year old M with Crohn's disease with recurrent flares who presented to the [facility] ER with complaint of persistent bloody diarrhea >15 episodes a day with fever and chills while on infliximab and methotrexate outpatient. On admission patient was started on IV solumedrol, C difficile was negative and he was started on empiric antibiotic coverage for possible infectious diarrhea with no improving diarrhea pending potential colonscopy tomorrow 08/[address] Rodriguez. PROBLEMS: 1. Crohn's with ongoing flare and inflammatory colitisvs. less likely infectious -Patient with history of biopsy proven Crohn's disease. Currently on Infliximab and Methotrexate outpatient. He has had recurrent flares. Recently established with Dr. Rodriguez. Noted to have bloody diarrhea of >15 episodes a day. -Continued on Solumedrol 60 mg IV daily. Episodes decreased to 6-7 episodes over the past 24 hours. Stool noted to be more formed with less bleeding. -Will need slow taper of steroid at discharge. If he is continued on prison steroids with infliximab then he will need PCP prophylaxis at discharge -Less likely an infectious diarrhea. GI panel was negative for C. difficile and other common diarrheal illness. Could consider an opportunistic diarrheal illness given his history of immunosuppressants however this is unlikely. He is on Cipro and Flagyl empirically. -Patient is planned to have a colonoscopy in August. Dr. Rodriguez has considered potentially doing the colonoscopy inpatient on 08/09, so will prep tonight after confirmation with Dr. Rodriguez. 2. Chronic Microcytic Anemia 2/2 to Crohn's -Patient is on iron infusions -Trending patients H&H daily -Patient is on GI prophylaxis with 40mg BID. 3. History of ITP -Patient has reported history of ITP. Not currently in ITP flare. Platelets within normal range. 4. GI prophylaxis -Prilosec 40mg daily 5. DVT prophylaxis -Teds and Sequentials given blood diarrhea and anemia DISPOSITION: Patient improving clinically. Continues to have 6-7 episodes of bloody diarrhea although resolving. Anticipate discharge in 24-48 hours VS,Fishbone, I+O VS, Fishbone, I+O Laboratory Tests 08/08/20 05:47 Vital Signs Date Time Temp Pulse Resp B/P (MAP) Pulse Ox O2 Delivery O2 Flow Rate FiO2 08/08/20 06:00 98.1 81 18 112/57 (75) 100 08/07/20 14:00 Room Air I&O- Last 24 Hours up to 6 AM 08/08/20 06:00 Intake Total 2960 ml Output Total 1400 ml Balance 1560 ml VANNA SANCHEZ MD August 08, 2020 08:48
[2020-08-08] MEDS: CYCLOBENZAPRINE 5MG TABLET PO PRN (12:22)
[2020-08-08 14:00] VITALS: BP 112/64
[2020-08-08] MEDS ORDERED: metroNIDAZOLE (FLAGYL) 500MG TABLET PO SCH (14:00)
[2020-08-08] MEDS: traMADol 50 MG TAB PO PRN (17:25)
[2020-08-08] MEDS ORDERED: CIPROFLOXACIN 500MG TABLET PO SCH (18:00)
[2020-08-08] MEDS: LIDOCAINE 5% (LIDODERM) PATCH TD SCH ×2 (18:57→21:00)
[2020-08-08] MEDS ORDERED: **NOTE PATIENT COMMENT** MISC XX SCH (21:00)
[2020-08-08] MEDS: ACETAMINOPHEN TAB 650MG DOSE (2X325MG) PO PRN (21:41)
[2020-08-08 22:00] VITALS: BP 124/75
[2020-08-09 03:06] LABS: SOLUBLE TRANSFERRIN RECEPTOR 10.1 nmol/L (12.2-27.3)
[2020-08-09 06:00] VITALS: BP 125/69
[2020-08-09] MEDS: D5W/0.9% SODIUM CHLORIDE 1,000 ML IV SCH (06:13)
[2020-08-09 06:54] LABS: BASO % 0.1 % (0.0-1.0); HEMATOCRIT 30.1 % (42.0-52.0); LYMPH # 1.7 10^3/uL (1.5-5.0); LYMPH % 19.2 % (24.0-44.0); MEAN CORPUSCULAR HEMOGLOBIN 22.6 pg (27.0-33.0); MEAN CORPUSCULAR HGB CONC 29.9 g/dl (32.0-36.5); MEAN CORPUSCULAR VOLUME 75.4 fl (80.0-96.0); MONO # 1.2 10^3/uL (0.0-0.8); NEUTROPHILS # 5.6 10^3/uL (1.5-8.5); NEUTROPHILS % 65.2 % (36.0-66.0); PLATELET COUNT, AUTOMATED 325 10^3/uL (150-450); RED BLOOD COUNT 3.99 10^6/uL (4.30-6.10); WHITE BLOOD COUNT 8.7 10^3/uL (4.0-10.0)
[2020-08-09 07:18] LABS: BLOOD UREA NITROGEN 11 MG/DL (7-18); CALCIUM LEVEL 7.7 MG/DL (8.5-10.1); CARBON DIOXIDE LEVEL 30 MEQ/L (21-32); CHLORIDE LEVEL 109 MEQ/L (98-107); CREATININE FOR GFR 0.59 MG/DL (0.70-1.30); GLOMERULAR FILTRATION RATE > 60.0 (>60); GLUCOSE, FASTING 118 MG/DL (70-100); POTASSIUM SERUM 3.5 MEQ/L (3.5-5.1); SODIUM LEVEL 142 MEQ/L (136-145)
[2020-08-09] MEDS: FOLIC ACID 1 MG TAB PO SCH (08:18)
[2020-08-09] MEDS: MULTIVITAMINS/MINERALS THERAP 1 TAB PO SCH (08:18)
[2020-08-09] MEDS: IRON SUCROSE 100 MG in NS 100 ML IV SCH (08:18)
[2020-08-09] MEDS: OMEPRAZOLE 20 MG CAP PO SCH (08:18)
[2020-08-09] MEDS ORDERED: METHOTREXATE 2.5 MG TAB (J8610 PER 2.5MG) PO SCH (09:00)
[2020-08-09] MEDS ORDERED: predniSONE 50 MG TAB PO SCH (09:00)
[2020-08-09] MEDS: traMADol 50 MG TAB PO PRN (09:27)
[2020-08-09] MEDS: CYCLOBENZAPRINE 5MG TABLET PO PRN (09:27)
[2020-08-09] MEDS ORDERED: BACTDSTA PO (10:10)
[2020-08-09] MEDS ORDERED: PRED50TA PO (10:10)
--- NOTE | 2020-08-09 15:05 | DS.PDOC ---
Discharge Summary General Date of Admission August 05, 2020 at 19:37 Date of Discharge 08/09/20 Primary Care Physician: Milan Jones MD Attending Physician: VANNA SANCHEZ MD Discharge Summary PROCEDURES PERFORMED DURING STAY: [None]. ADMITTING DIAGNOSES: 1. Colitis 2/2 Acute Crohn's disease flare 2. Microcytic Anemia 3. History of ITP DISCHARGE DIAGNOSES: 1. Colitis 2/2 Acute Crohn's disease flare 2. Microcytic Anemia 3. History of ITP COMPLICATIONS/CHIEF COMPLAINT: Anemia,Crohns Dis,Sepsis. HISTORY OF PRESENT ILLNESS: Patient is a 25 year old male with a past medical history significant for biopsy proven crohns disease on Infliximab, metho trexate, and mesalamine outpatient who presented to the [facility] ER with a complaint of persistent bloody diarrhea for 3 days. Patient also noted nausea, vomiting, and fever. He had stated that he has had frequent flares over the past couple of years with over a 70lb weight loss in the past year. Over the last three days he had developed a fever, nausea, vomiting, and bloody diarrhea. He stated that he had >15 episodes of bloody diarrhea which prompted him to present to the ED In the ED the patient was febrile and tachycardic. He was given IV fluids. A GI panel was ordered which was negative for C. difficile and other commonly tested diarrheal illness. Given the severity of his diarrhea he was started empirically on Ciprofloxacin and Flagyl. It was suspected that the patient was likely in a Crohn's flare and therefore he was started on Methylprednisone 60mg IV daily. A CT abdomen and pelvis was obtained which demonstrated diffusely boggy appearance of the distal transverse, left sigmoid colon and rectum with mural stratification and ahaustral contour. There was also pericolonic inflammatory changes consistent with acute colitis. Patient was admitted to hospitalist service for further evaluation and management HOSPITAL COURSE: On admission the patient was continued on IV Ciprofloxacin and Flagyl for 3 days. He was continued on IV Methylprednisone 60mg. During the patients hospitalization his diarrhea started to resolve. His episodes decreased to ~6 episodes a day which is his normal. Additionally he has stated that there was little blood and formed stool. He was also noted to have a microcytic anemia which appeared to be chronic and likely secondary to his Crohn's disease. He was placed on iron infusions during his hospitalization. On discharge the patients [employer], Dr. Rodriguez was contacted with recommendations to continue patient on 50mg Prednisone daily for 3 weeks with long taper. Patient was advised to follow-up with Gastroenterology in 1-2 weeks. Additionally the patient was started on Bactrim on discharge for PCP prophylaxis given long duration of high dose steroids and continued infliximab therapy. Patient was advised to follow-up with PCP MEDICAL ISSUES ADDRESSED DURING HOSPITALIZATION 1. Inflammatory Colitis 2/2 Acute Crohn's disease Flare -Treated empirically with 3 days of Cipro and Flagyl. GI panel negative -Treated with IV Solumedrol with decrease in diarrheal episodes -Discharged on 50mg Prednisone to continue for 3 weeks at which point he is to slowly taper off -Started on Bactrim 1 double strength tablet daily for PCP prophylaxis 2. Chronic Microcytic Anemia 2/2 to Crohn's -Patient given iron infusions inpatient. -Recommended to continue to follow outpatient with PCP and GI 3. History of ITP -Platelets within normal range during hospitalization. No acute ITP flare 4. GI prophylaxis -Patient continued on Prilosec during hospitalization and discharge given high dose steroids 5. PCP Prophylaxis -Bactrim DS, 1 tab daily for PCP prophylaxis given >20mg of oral prednisone for > 4 weeks. DISCHARGE MEDICATIONS: Please see below. ALLERGIES: Please see below. PHYSICAL EXAMINATION ON DISCHARGE: VITAL SIGNS: Please see below. GENERAL: Awake, alert and oriented. Appears in no acute distress. Lying comfortably in bed HEENT: Atrauamtic, normocephalic. Eyes are nonicteric. Trachea is midline. Mucous membranes are pink and moist NECK: No palpable, cervical, axillary, or supraclavicular lymphadenopathy CARDIOVASCULAR EXAMINATION: Normal S1, S2. Regular rate and rhythm. No clicks, rubs, or murmurs. RESPIRATORY EXAMINATION: Clear vesicular breath sounds bilaterally. No wheezes, rhonchi, or rales ABDOMINAL EXAMINATION: Soft, nondistended. nontender. Normoactive bowel sounds throughout EXTREMITIES: No edema. Full and equal pulses in bilateral upper and lower extremities SKIN: No rashes or lesions NEUROLOGICAL EXAMINATION: No focal neurological deficits PSYCHIATRIC EXAMINATION: Mood and affect appear appropriate LABORATORY DATA: Please see below. IMAGING: PROCEDURE INFORMATION: Exam: CT Abdomen And Pelvis With Contrast Exam date and time: 08/05/2020 2:44 PM Age: 25 years old Clinical indication: Vomiting; Additional info: Vomiting, crohns TECHNIQUE: Imaging protocol: Computed tomography of the abdomen and pelvis with contrast. Radiation optimization: All CT scans at this facility use at least one of these dose optimization techniques: automated exposure control; mA and/or kV adjustment per patient size (includes targeted exams where dose is matched to clinical indication); or iterative reconstruction. Contrast material: ISOVUE 370; Contrast volume: 100 ml; Contrast route: INTRAVENOUS (IV); COMPARISON: CT ABD PELVIS WITH CONTRAST 12/02/2015 6:27 PM FINDINGS: Liver: 3 mm simple cyst segment 2 left lobe of the liver. Liver otherwise unremarkable. Gallbladder and bile ducts: Normal. No calcified stones. No ductal dilation. Pancreas: Normal. No ductal dilation. Spleen: Normal. No splenomegaly. Adrenal glands: Normal. No mass. Kidneys and ureters: Normal. No hydronephrosis. Stomach and bowel: There is a diffusely boggy appearance of the distal transverse, left, sigmoid colon and rectum with mural stratification and an ahasutral countour. There are pericolonic inflammatory changes. Findings consistent with acute colitis. No abscess demonstrated. Appendix: No evidence of appendicitis. Intraperitoneal space: Unremarkable. No free air. No significant fluid collection. Vasculature: Unremarkable. No abdominal aortic aneurysm. Lymph nodes: Unremarkable. No enlarged lymph nodes. Urinary bladder: Unremarkable as visualized. Reproductive: Unremarkable as visualized. Bones/joints: Severe central spinal stenosis L4-L5. Soft tissues: Unremarkable. IMPRESSION: There is a diffusely boggy appearance of the distal transverse, left, sigmoid colon and rectum with mural stratification and an ahasutral countour. There are pericolonic inflammatory changes. Findings consistent with acute colitis. No abscess demonstrated. Electronically signed by: Magdaleno Emery On 08/05/2020 18:05:41 PM PROGNOSIS: Fair ACTIVITY: [As tolerated]. DIET: As tolerated DISCHARGE PLAN: Patient to be discharged home. He is to follow-up with Dr. Rodriguez in 1-2 weeks. He is to continue 50mg oral Prednisone for 3 weeks after which he is to be tapered off of steroids slowly. He is to continue his Prilosec for GI prophylaxis. Additionally, he is to start Bactrim 1 DS tablet daily for PCP prophylaxis. Patient is to follow-up with his PCP in 5-10 days DISPOSITION: 01 Home, Self-Care. DISCHARGE INSTRUCTIONS: 1. Follow-up with Dr. Rodriguez (Gastroenterology) in 1-2 weeks 2. Continue 50mg Oral Prednisone for 3 weeks. 3. After 3 weeks of 50mg Prednisone begin slow taper as instructed by Gastroenterology 4. Continue Prilosec for GI prophylaxis 5. Start Bactrim for PCP prophylaxis, to continue until instructed otherwise by GI or PCP DISCHARGE CONDITION: [Stable]. TIME SPENT ON DISCHARGE: Greater than 40 minutes. Vital Signs/I&Os Vital Signs Date Time Temp Pulse Resp B/P (MAP) Pulse Ox O2 Delivery O2 Flow Rate FiO2 08/09/20 11:08 18 08/09/20 06:00 97.8 52 125/69 (87) 96 Room Air I&O- Last 24 Hours up to 6 AM 08/09/20 06:00 Intake Total 1325 ml Output Total 950 ml Balance 375 ml Laboratory Data Labs 24H Laboratory Tests 2 08/09/20 06:10: Immature Granulocyte % (Auto) 1.5, Neutrophils (%) (Auto) 65.2, Lymphocytes (%) (Auto) 19.2L, Monocytes (%) (Auto) 14.0H, Eosinophils (%) (Auto) 0.0, Basophils (%) (Auto) 0.1, Neutrophils # (Auto) 5.6, Lymphocytes # (Auto) 1.7, Monocytes # (Auto) 1.2H, Eosinophils # (Auto) 0.0, Basophils # (Auto) 0.0, Nucleated Red Blo od Cells % (auto) 0.0, Anion Gap 3L, Glomerular Filtration Rate > 60.0, Calcium Level 7.7L CBC/BMP Laboratory Tests 08/09/20 06:10 Microbiology Microbiology 08/05/20 Gastrointestinal Tract Panel (PCR) - Final, Complete 08/05/20 Respiratory Virus Panel (PCR) (DARYL) - Final, Complete 08/05/20 Blood Culture - Preliminary, Resulted No Growth after 72 hours. All specime... 08/05/20 Blood Culture - Preliminary, Resulted No Growth after 72 hours. All specime... Discharge Medications Scheduled Folic Acid (Folic Acid) 1 Mg Tablet, 1 MG PO DAILY, (Reported) Infliximab Biosimilar (Inflectra) 100 Mg Vial, 300 MG IV Q6WKS, (Reported) DUE Sunday08/11/20 Mesalamine (Mesalamine) 1.2 Gm Tablet.dr, 4.8 GM PO DAILY, (Reported) Methotrexate Sodium (Methotrexate) 2.5 Mg Tablet, 12.5 MG PO QWEEK, (Reported) MONDAYS Multivitamin (Multi-Vitamin Daily) 1 Each Tablet, 1 TAB PO DAILY, (Reported) Omeprazole (Omeprazole) 40 Mg Capsule.dr, 40 MG PO DAILY, (Reported) Prednisone (Prednisone) 50 Mg Tablet, 50 MG PO DAILY Sulfamethoxazole/Trimethoprim (Sulfamethoxazole-Tmp Ds Tablet) 1 Each Tablet, 1 TAB PO DAILY for PCP prophylaxis Allergies Coded Allergies: bee venom protein (honey bee) (Verified Allergy, Unknown, 09/23/19) GME ATTESTATION My faculty preceptor for this patient encounter was physically present during the encounter and was fully available. All aspects of the patient interview, examination, medical decision making process, and medical care plan development were reviewed and approved by the faculty preceptor. The faculty preceptor is aware and concurs with the plan as stated in the body of this note and will attest to such by his/her cosignature. ATTENDING NOTE I personally examined the patient and discussed the findings and plan with the royce physician as noted above. Briefly Mr. Abrams was admitted with a Crohn's flare with hemorrhagic colitis with close to 20 episodes of diarrhea daily that improved quickly with starting steroids and have returned to 5-6 episodes of formed BMs per day that are his baseline. Dr. Rodriguez was consulted and has decided to defer colonoscopy and recommended steroids with 50mg prednisone for 3 weeks with a slow taper thereafter and he will do a follow up colonoscopy likely within 2 months in the outpatient setting. Patient is also on infliximab and methotrexate. COLLIN CHAKRABORTY DO August 09, 2020 15:05 VANNA SANCHEZ MD August 09, 2020 18:12
[2020-08-09] MEDS ORDERED: LIDOCAINE 5% (LIDODERM) PATCH TD SCH (21:00)
[2020-08-10] MEDS ORDERED: **NOTE PATIENT COMMENT** MISC XX SCH (09:00)
== END 2020-08-09 13:09 | disposition home or self-care (01) | DRG 245 ==
LOC: M ED 13:15 → M ED INP 19:37 → ENRESERVDT 20:13 → ENRESERVTM 20:13 → M MSPAV 22:13
PROVIDERS: ADMIT Internal Medicine; ATTEND Internal Medicine
DX: K50.90 Crohn's disease, unspecified, without complications (principal); D69.3 Immune thrombocytopenic purpura; E46 Unspecified protein-calorie malnutrition; D50.9 Iron deficiency anemia, unspecified; Z91.030 Bee allergy status; Z79.899 Other long term (current) drug therapy

== ENCOUNTER 2020-08-11 12:45 | Outpatient (CLI) | payer BC ==
[~2020-08-11 12:45] MED LIST changes: +ACETAMINOPHEN 650MG PO PRIOR TO INFUSION PO ONE; +BACTDSTA PO; +FOLI1TAB11 PO; +INFLIXIMAB BIOSIMILAR 300 MG in NS 220 ML IV ONE; +NAPR220C14 PO; +NS 1,000 ML IV SCH; +PRED50TA PO; -SODIUM CHLORIDE 0.9% 1000ML IV SCH
[2020-08-11 13:40] VITALS: BP 150/90
[2020-08-11 13:55] VITALS: BP 153/84
[2020-08-11 14:11] VITALS: BP 149/77
[2020-08-11 14:45] VITALS: BP 146/87
[2020-08-11 15:15] VITALS: BP 139/79
== END 2020-08-11 16:00 | disposition home or self-care (01) ==
LOC: M INFU 12:45
PROVIDERS: ATTEND Internal Medicine Gastroenterology
DX: K50.90 Crohn's disease, unspecified, without complications (principal); Z91.030 Bee allergy status
CPT/HCPCS: 96365; 96366; Q5103

== ENCOUNTER → 2020-08-17 | Outpatient (REF) | payer BC ==
[~2020-08-17] MED LIST changes: -ACETAMINOPHEN 650MG PO PRIOR TO INFUSION PO ONE; -INFLIXIMAB BIOSIMILAR 300 MG in NS 220 ML IV ONE; -NS 1,000 ML IV SCH
[2020-08-17 11:50] LABS: EOS % 0.1 % (0.0-3.0); HEMATOCRIT 35.5 % (42.0-52.0); HEMOGLOBIN 10.8 g/dl (13.5-17.5); LYMPH # 2.3 10^3/uL (1.5-5.0); LYMPH % 24.4 % (24.0-44.0); MEAN CORPUSCULAR HEMOGLOBIN 23.7 pg (27.0-33.0); MEAN CORPUSCULAR HGB CONC 30.4 g/dl (32.0-36.5); MONO # 0.7 10^3/uL (0.0-0.8); NEUTROPHILS # 6.5 10^3/uL (1.5-8.5); PLATELET COUNT, AUTOMATED 402 10^3/uL (150-450); RED BLOOD COUNT 4.55 10^6/uL (4.30-6.10); WHITE BLOOD COUNT 9.6 10^3/uL (4.0-10.0)
[2020-08-17 12:20] LABS: ALBUMIN 2.9 GM/DL (3.2-5.2); ALT/SGPT 36 U/L (12-78); BILIRUBIN,TOTAL 0.3 MG/DL (0.2-1.0); BLOOD UREA NITROGEN 14 MG/DL (7-18); CALCIUM LEVEL 8.8 MG/DL (8.5-10.1); CARBON DIOXIDE LEVEL 32 MEQ/L (21-32); CHLORIDE LEVEL 104 MEQ/L (98-107); CREATININE FOR GFR 0.73 MG/DL (0.70-1.30); GLOMERULAR FILTRATION RATE > 60.0 (>60); GLUCOSE, FASTING 88 MG/DL (70-100); SODIUM LEVEL 139 MEQ/L (136-145); TOTAL PROTEIN 6.1 GM/DL (6.4-8.2)
== END ==
LOC: M SFHCCLAY 09:06
PROVIDERS: ATTEND Family Medicine
DX: D50.9 Iron deficiency anemia, unspecified (principal); K50.811 Crohn's disease of both small and large intestine with rectal bleeding

== ENCOUNTER 2020-09-22 13:50 | Outpatient (CLI) | payer BC ==
[~2020-09-22] VITALS: Ht 172.7 cm; Wt 70.0 kg
[2020-09-22] VITALS (7 sets, daily range): BP systolic 115–132; BP diastolic 63–76
[~2020-09-22 13:50] MED LIST changes: +OMEP40CA4 PO; -OMEP40CA97 PO
[2020-09-22] MEDS ORDERED: ACETAMINOPHEN 650MG PO PRIOR TO INFUSION PO ONE (14:00)
[2020-09-22] MEDS ORDERED: NS 1,000 ML IV SCH (14:00)
[2020-09-22] MEDS ORDERED: INFLIXIMAB BIOSIMILAR 300 MG in NS 220 ML IV ONE (14:00)
[2020-09-23] MEDS ORDERED: ADDE20CA3 PO (14:01)
== END 2020-09-22 16:50 | disposition home or self-care (01) ==
LOC: M INFU 13:50
PROVIDERS: ATTEND Internal Medicine Gastroenterology
DX: K50.90 Crohn's disease, unspecified, without complications (principal)
CPT/HCPCS: 96413; 96415; Q5103

== ENCOUNTER → 2020-09-29 | Outpatient (CLI) | payer BC ==
[~2020-09-29] MED LIST changes: +ADDE20CA3 PO
== END ==
LOC: M LABSMTC 14:00
PROVIDERS: ATTEND Anesthesiology
DX: Z01.812 Encounter for preprocedural laboratory examination (principal); Z20.822 Contact with and (suspected) exposure to COVID-19

== ENCOUNTER 2020-10-04 13:41 | Day surgery (SDC) | payer BC ==
[~2020-10-04] VITALS: Ht 175.3 cm; Wt 59.4 kg
[~2020-10-04 13:41] MED LIST changes: +LR 1,000 ML IV ONE; +NS 1,000 ML IV ONE
[2020-10-04] MEDS ORDERED: propofoL 200 MG/20 ML VIAL As Ordered ONE ×2 (14:00→14:55)
[2020-10-04] MEDS ORDERED: LIDOCAINE 2% 100MG/5ML SDV (FOR ANES.) As Ordered ONE (14:00)
[2020-10-04] MEDS ORDERED: fentaNYL 100 MCG/2 ML INJECTION (J3010) As Ordered ONE (14:00)
[2020-10-04 15:45] VITALS: BP 118/63
--- NOTE | 2020-10-04 15:56 | ROOR ---
Patient Name: Ramiro Abrams Procedure Date: 10/04/2020 2:44 PM Date of : 1995 Age: 25 Room: [facility] Gender: Male Note Status: Finalized Procedure: Colonoscopy Indications: Screening for colorectal malignant neoplasm Providers: Alexey Rodriguez MD Referring MD: Milan Jones MD Requesting Provider: Medicines: Monitored Anesthesia Care Complications: No immediate complications. Procedure: Pre-Anesthesia Assessment: - Prior to the procedure, a History and Physical was performed, and patient medications and allergies were reviewed. The patient is competent. The risks and benefits of the procedure and the sedation options and risks were discussed with the patient. All questions were answered and informed consent was obtained. Patient identification and proposed procedure were verified by the physician, the nurse and the anesthesiologist in the procedure room. Mental Status Examination: alert and oriented. Airway Examination: normal oropharyngeal airway and neck mobility. Respiratory Examination: clear to auscultation. CV Examination: normal. Prophylactic Antibiotics: The patient does not require prophylactic antibiotics. Prior Anticoagulants: The patient has taken no previous anticoagulant or antiplatelet agents. ASA Grade Assessment: II - A patient with mild systemic disease. After reviewing the risks and benefits, the patient was deemed in satisfactory condition to undergo the procedure. The anesthesia plan was to use monitored anesthesia care (MAC). Immediately prior to administration of medications, the patient was re-assessed for adequacy to receive sedatives. The heart rate, respiratory rate, oxygen saturations, blood pressure, adequacy of pulmonary ventilation, and response to care were monitored throughout the procedure. The physical status of the patient was re-assessed after the procedure. The Colonoscope was introduced through the anus and advanced to the terminal ileum, with identification of the appendiceal orifice and IC valve. The colonoscopy was performed without difficulty. The patient tolerated the procedure well. The quality of the bowel preparation was good. The terminal ileum, ileocecal valve, appendiceal orifice, and rectum were photographed. Scope insertion time was 4 minutes. Scope withdrawal time was 8 minutes. The total duration of the procedure was 12 minutes. Findings: The perianal and digital rectal examinations were normal. The terminal ileum appeared normal. Normal mucosa was found from hepatic flexure to cecum. Biopsies were taken with a cold forceps for histology. Verification of patient identification for the specimen was done by the physician and nurse using the patient's name, date and medical record number. Estimated blood loss was minimal. Diffuse severe inflammation characterized by altered vascularity, congestion (edema), loss of vascularity, mucus, pseudopolyps, confluent ulcerations and shallow ulcerations was found from rectum to hepatic flexure. Biopsies were taken with a cold forceps for histology. Retroflexion in the rectum was not performed due to anatomy. Impression: - The examined portion of the ileum was normal. - Normal mucosa from hepatic flexure to cecum. Biopsied. - Diffuse severe inflammation was found from rectum to hepatic flexure secondary to ulcerative colitis. Biopsied. Recommendation: - Patient has a contact number available for emergencies. The signs and symptoms of potential delayed complications were discussed with the patient. Return to normal activities tomorrow. Written discharge instructions were provided to the patient. - High fiber diet. - Continue present medications. - Use original regular Metamucil one teaspoon PO daily. - Use Entocort EC (budesonide) (Tapering course) 9mg dose daily for 4 weeks, then 6mg dose for 4 weeks and then 3 mg dose for last 4 weeks. Take tablets together PO one time per day. - Continue present medications. - Await pathology results. - Repeat colonoscopy in 1 year to assess disease activity and to evaluate the response to therapy. - Check with Clinic for the interval labs to be done for monitoring. - Return to GI clinic in [facility] (address [address], [address], [place], [address]) in 4 -- 6 weeks. Please call GI clinic @ [phone] for apppointment date and time. - Return to primary care physician. Procedure Code(s): --- Professional --- 56228, Colonoscopy, flexible; with biopsy, single or multiple Diagnosis Code(s): --- Professional --- Z12.11, Encounter for screening for malignant neoplasm of colon K51.90, Ulcerative colitis, unspecified, without complications CPT copyright 2019 [employer]. All rights reserved. The codes documented in this report are preliminary and upon dye expert review may be revised to meet current compliance requirements. Alexey Rodriguez MD Alexey Rodriguez MD 10/04/2020 3:55:45 PM Electronically signed by Alexey Rodriguez MD Number of Addenda: 0 Note Initiated On: 10/04/2020 2:44 PM Estimated Blood Loss: Estimated blood loss was minimal.
--- NOTE | 2020-10-04 16:00 | ROOR ---
Patient Name: Ramiro Abrams Procedure Date: 10/04/2020 2:43 PM Date of : 1995 Age: 25 Room: [facility] Gender: Male Note Status: Finalized Procedure: Upper GI endoscopy Indications: Abnormal UGI series Providers: Alexey Rodriguez MD Referring MD: Milan Jones MD Requesting Provider: Medicines: Monitored Anesthesia Care Complications: No immediate complications. Procedure: Pre-Anesthesia Assessment: - Prior to the procedure, a History and Physical was performed, and patient medications and allergies were reviewed. The patient is competent. The risks and benefits of the procedure and the sedation options and risks were discussed with the patient. All questions were answered and informed consent was obtained. Patient identification and proposed procedure were verified by the physician, the nurse and the anesthesiologist in the procedure room. Mental Status Examination: alert and oriented. Airway Examination: normal oropharyngeal airway and neck mobility. Respiratory Examination: clear to auscultation. CV Examination: normal. Prophylactic Antibiotics: The patient does not require prophylactic antibiotics. Prior Anticoagulants: The patient has taken no previous anticoagulant or antiplatelet agents. ASA Grade Assessment: II - A patient with mild systemic disease. After reviewing the risks and benefits, the patient was deemed in satisfactory condition to undergo the procedure. The anesthesia plan was to use monitored anesthesia care (MAC). Immediately prior to administration of medications, the patient was re-assessed for adequacy to receive sedatives. The heart rate, respiratory rate, oxygen saturations, blood pressure, adequacy of pulmonary ventilation, and response to care were monitored throughout the procedure. The physical status of the patient was re-assessed after the procedure. The Endoscope was introduced through the mouth, and advanced to the second part of duodenum. The upper GI endoscopy was accomplished without difficulty. The patient tolerated the procedure well. Findings: The examined esophagus was normal. Scattered mild inflammation characterized by congestion (edema), erythema and granularity was found in the gastric antrum. Biopsies were taken with a cold forceps for Helicobacter pylori testing. Verification of patient identification for the specimen was done by the physician and nurse using the patient's name, date and medical record number. Estimated blood loss was minimal. Localized moderate mucosal changes characterized by congestion, nodularity and Congested prominent, polypoid fold, with nodular mucosa were found in the duodenal bulb. Biopsies were taken with a cold forceps for histology. Impression: - Normal esophagus. - Gastritis. Biopsied. - Mucosal changes in the duodenum. Biopsied. Recommendation: - Patient has a contact number available for emergencies. The signs and symptoms of potential delayed complications were discussed with the patient. Return to normal activities tomorrow. Written discharge instructions were provided to the patient. - High fiber diet. - Continue present medications. - Await pathology results. - Follow the recommendations as per the other procedure note. - Return to GI clinic in [facility] (address [address], [address], [place] [address]) in 4 -- 6 weeks. Please call GI clinic @ [phone] for apppointment date and time. Procedure Code(s): --- Professional --- 99659, Esophagogastroduodenoscopy, flexible, transoral; with biopsy, single or multiple Diagnosis Code(s): --- Professional --- K29.70, Gastritis, unspecified, without bleeding K31.89, Other diseases of stomach and duodenum R93.3, Abnormal findings on diagnostic imaging of other parts of digestive tract CPT copyright 2019 [employer]. All rights reserved. The codes documented in this report are preliminary and upon lay out and detail drafter review may be revised to meet current compliance requirements. Alexey Rodriguez MD Alexey Rodriguez MD 10/04/2020 3:59:53 PM Electronically signed by Alexey Rodriguez MD Number of Addenda: 0 Note Initiated On: 10/04/2020 2:43 PM Estimated Blood Loss: Estimated blood loss was minimal.
[2020-10-05 08:52] LABS: CLOSTRIDIUM DIFFICILE PCR NEGATIVE (NEGATIVE)
== END 2020-10-04 16:24 | disposition home or self-care (01) ==
LOC: M OPP 13:41
PROVIDERS: ATTEND Internal Medicine Gastroenterology
DX: Z12.11 Encounter for screening for malignant neoplasm of colon (principal); K51.90 Ulcerative colitis, unspecified, without complications; K29.70 Gastritis, unspecified, without bleeding; K31.89 Other diseases of stomach and duodenum; R93.3 Abnormal findings on diagnostic imaging of other parts of digestive tract; K63.89 Other specified diseases of intestine; Z91.030 Bee allergy status; Z88.0 Allergy status to penicillin; Z88.3 Allergy status to other anti-infective agents; Z88.1 Allergy status to other antibiotic agents
CPT/HCPCS: 43239; 45380; 87493; 88305; J3010

== ENCOUNTER → 2020-10-29 | Outpatient (CLI) | payer BC ==
[~2020-10-29] MED LIST changes: -LR 1,000 ML IV ONE; -NS 1,000 ML IV ONE
== END ==
LOC: M LAB 15:58
PROVIDERS: ATTEND Internal Medicine Gastroenterology
DX: K50.111 Crohn's disease of large intestine with rectal bleeding (principal); Z53.9 Procedure and treatment not carried out, unspecified reason

== ENCOUNTER 2020-11-03 15:09 | Outpatient (CLI) | payer BC ==
[~2020-11-03] VITALS: Ht 175.3 cm; Wt 59.4 kg
[2020-11-03 15:00] VITALS: BP 120/76
[~2020-11-03 15:09] MED LIST changes: +ACETAMINOPHEN 650MG PO PRIOR TO INFUSION PO ONE; +INFLIXIMAB BIOSIMILAR 300 MG in NS 220 ML IV ONE; +NS 1,000 ML IV SCH
[2020-11-03 16:09] VITALS: BP 125/62
[2020-11-03 16:34] VITALS: BP 112/55
[2020-11-03 17:05] VITALS: BP 126/81
[2020-11-03 18:05] VITALS: BP 121/73
== END 2020-11-03 18:05 | disposition home or self-care (01) ==
LOC: M INFU 15:09
PROVIDERS: ATTEND Internal Medicine Gastroenterology
DX: K50.90 Crohn's disease, unspecified, without complications (principal); Z91.030 Bee allergy status
CPT/HCPCS: 96365; 96366; Q5103

== ENCOUNTER → 2020-12-01 | Outpatient (CLI) | payer BC ==
[~2020-12-01] MED LIST changes: -ACETAMINOPHEN 650MG PO PRIOR TO INFUSION PO ONE; -INFLIXIMAB BIOSIMILAR 300 MG in NS 220 ML IV ONE; -NS 1,000 ML IV SCH
[2020-12-01 17:09] LABS: BLOOD UREA NITROGEN 7 MG/DL (7-18); C REACTIVE PROTEIN QUANTITATIV 1.55 MG/DL (0.00-0.30); CARBON DIOXIDE LEVEL 29 MEQ/L (21-32); CHLORIDE LEVEL 106 MEQ/L (98-107); CREATININE FOR GFR 0.91 MG/DL (0.70-1.30); GLOMERULAR FILTRATION RATE > 60.0 (>60); GLUCOSE, FASTING 79 MG/DL (70-100); POTASSIUM SERUM 3.7 MEQ/L (3.5-5.1); PREALBUMIN 14.4 MG/DL (20.0-40.0); SODIUM LEVEL 139 MEQ/L (136-145)
== END ==
LOC: M LAB 15:13
PROVIDERS: ATTEND Internal Medicine Gastroenterology
DX: K50.111 Crohn's disease of large intestine with rectal bleeding (principal); R15.2 Fecal urgency; R19.7 Diarrhea, unspecified

== ENCOUNTER → 2020-12-08 | Outpatient (REF) | payer BC | LOC: M SFHCCLAY 09:39 | PROVIDERS: ATTEND Family Medicine | DX: R50.9 Fever, unspecified (principal); K50.811 Crohn's disease of both small and large intestine with rectal bleeding ==

== ENCOUNTER 2020-12-15 14:56 | Outpatient (CLI) | payer BC ==
[2020-12-15] MEDS ORDERED: INFLIXIMAB BIOSIMILAR 600 MG in NS 190 ML IV ONE (15:00)
[2020-12-15] MEDS ORDERED: ACETAMINOPHEN 650MG PO PRIOR TO INFUSION PO ONE (15:00)
[2020-12-15] MEDS ORDERED: NS 1,000 ML IV SCH (15:00)
[2020-12-15 15:25] VITALS: BP 123/74
[2020-12-15 16:00] VITALS: BP 118/76
[2020-12-15 16:15] VITALS: BP 121/78
[2020-12-15 17:12] VITALS: BP 131/83
== END 2020-12-15 17:15 | disposition home or self-care (01) ==
LOC: M INFU 14:56
PROVIDERS: ATTEND Internal Medicine Gastroenterology
DX: K50.90 Crohn's disease, unspecified, without complications (principal); Z91.030 Bee allergy status
CPT/HCPCS: 96365; Q5103

== ENCOUNTER → 2021-01-10 | Outpatient (REF) | payer BC ==
[2021-01-10 16:19] LABS: BASO % 0.4 % (0.0-1.0); EOS # 0.1 10^3/uL (0.0-0.5); HEMATOCRIT 42.4 % (42.0-52.0); HEMOGLOBIN 12.7 g/dl (13.5-17.5); LYMPH # 2.9 10^3/uL (1.5-5.0); LYMPH % 39.1 % (24.0-44.0); MEAN CORPUSCULAR HEMOGLOBIN 23.2 pg (27.0-33.0); MEAN CORPUSCULAR VOLUME 77.4 fl (80.0-96.0); MONO # 0.6 10^3/uL (0.0-0.8); MONO % 8.2 % (2.0-8.0); NEUTROPHILS # 3.7 10^3/uL (1.5-8.5); NEUTROPHILS % 50.8 % (36.0-66.0); PLATELET COUNT, AUTOMATED 248 10^3/uL (150-450); RED BLOOD COUNT 5.48 10^6/uL (4.30-6.10); WHITE BLOOD COUNT 7.3 10^3/uL (4.0-10.0)
[2021-01-10 17:11] LABS: ALBUMIN 2.6 GM/DL (3.2-5.2); ALT/SGPT 31 U/L (12-78); BILIRUBIN,TOTAL 0.4 MG/DL (0.2-1.0); BLOOD UREA NITROGEN 15 MG/DL (7-18); CALCIUM LEVEL 8.6 MG/DL (8.5-10.1); CARBON DIOXIDE LEVEL 30 MEQ/L (21-32); CHLORIDE LEVEL 103 MEQ/L (98-107); CREATININE FOR GFR 1.01 MG/DL (0.70-1.30); GLOMERULAR FILTRATION RATE > 60.0 (>60); GLUCOSE, FASTING 100 MG/DL (70-100); POTASSIUM SERUM 3.6 MEQ/L (3.5-5.1); SODIUM LEVEL 139 MEQ/L (136-145); TOTAL PROTEIN 6.8 GM/DL (6.4-8.2)
== END ==
LOC: M SFHCCLAY 12:42
PROVIDERS: ATTEND Family Medicine
DX: R50.9 Fever, unspecified (principal); K50.811 Crohn's disease of both small and large intestine with rectal bleeding

== ENCOUNTER 2021-01-26 15:07 | Outpatient (CLI) | payer BC ==
[~2021-01-26 15:07] MED LIST changes: +ACETAMINOPHEN 650MG PO PRIOR TO INFUSION PO ONE; +INFLIXIMAB BIOSIMILAR 600 MG in NS 190 ML IV ONE; +NS 1,000 ML IV SCH
[2021-01-26 15:30] VITALS: BP 127/80
[2021-01-26 16:20] VITALS: BP 117/71
[2021-01-26 17:02] VITALS: BP 132/73
== END 2021-01-26 17:03 | disposition home or self-care (01) ==
LOC: M INFU 15:07
PROVIDERS: ATTEND Internal Medicine Gastroenterology
DX: K50.90 Crohn's disease, unspecified, without complications (principal); Z91.030 Bee allergy status
CPT/HCPCS: 96365; Q5103

== ENCOUNTER 2021-03-09 13:35 | Outpatient (CLI) | payer BC ==
[~2021-03-09] VITALS: Ht 175.3 cm; Wt 60.0 kg
[~2021-03-09 13:35] MED LIST changes: -ACETAMINOPHEN 650MG PO PRIOR TO INFUSION PO ONE; -INFLIXIMAB BIOSIMILAR 600 MG in NS 190 ML IV ONE; -NS 1,000 ML IV SCH
[2021-03-09 13:40] VITALS: BP 123/73
[2021-03-09 14:18] LABS: BASO % 0.4 % (0.0-1.0); EOS % 0.1 % (0.0-3.0); HEMATOCRIT 36.7 % (42.0-52.0); LYMPH # 1.8 10^3/uL (1.5-5.0); LYMPH % 23.8 % (24.0-44.0); MEAN CORPUSCULAR HEMOGLOBIN 22.6 pg (27.0-33.0); MEAN CORPUSCULAR VOLUME 75.4 fl (80.0-96.0); MONO # 0.8 10^3/uL (0.0-0.8); MONO % 10.8 % (2.0-8.0); NEUTROPHILS # 4.9 10^3/uL (1.5-8.5); NEUTROPHILS % 64.6 % (36.0-66.0); PLATELET COUNT, AUTOMATED 356 10^3/uL (150-450); RED BLOOD COUNT 4.87 10^6/uL (4.30-6.10); WHITE BLOOD COUNT 7.6 10^3/uL (4.0-10.0)
[2021-03-09 15:00] VITALS: BP_SYST 108; BP_SYST 123; BP_DIAS 59; BP_DIAS 73
[2021-03-09] MEDS ORDERED: NS 1,000 ML IV SCH (15:00)
[2021-03-09] MEDS ORDERED: ACETAMINOPHEN 650MG PO PRIOR TO INFUSION PO ONE (15:00)
[2021-03-09] MEDS ORDERED: INFLIXIMAB BIOSIMILAR 600 MG in NS 190 ML IV ONE (15:00)
[2021-03-09 15:01] LABS: ALBUMIN 2.4 GM/DL (3.2-5.2); ALT/SGPT 11 U/L (12-78); BILIRUBIN,DIRECT 0.2 MG/DL (0.0-0.2); BILIRUBIN,TOTAL 0.6 MG/DL (0.2-1.0); BLOOD UREA NITROGEN 9 MG/DL (7-18); C REACTIVE PROTEIN QUANTITATIV 7.39 MG/DL (0.00-0.30); CREATININE FOR GFR 0.79 MG/DL (0.70-1.30); GLOMERULAR FILTRATION RATE > 60.0 (>60); PREALBUMIN 13.7 MG/DL (20.0-40.0); TOTAL PROTEIN 6.3 GM/DL (6.4-8.2)
[2021-03-09 15:02] LABS: ERYTHROCYTE SEDIMENTATION RATE 57 mm/hr (0-15)
[2021-03-09 15:15] VITALS: BP 118/65
[2021-03-09 15:44] VITALS: BP 127/65
== END 2021-03-09 15:50 | disposition home or self-care (01) ==
LOC: M INFU 13:35
PROVIDERS: ATTEND Internal Medicine Gastroenterology
DX: K50.90 Crohn's disease, unspecified, without complications (principal); Z91.030 Bee allergy status
CPT/HCPCS: 36592; 80076; 80230; 82397; 82565; 84134; 84520; 85025; 85652; 86140; 86256; 86671; 96365; Q5103

== ENCOUNTER 2021-04-20 14:56 | Outpatient (CLI) | payer BC ==
[~2021-04-20] VITALS: Ht 175.3 cm; Wt 60.0 kg
[2021-04-20 15:00] VITALS: BP 136/78
[2021-04-20] MEDS ORDERED: INFLIXIMAB BIOSIMILAR 600 MG in NS 190 ML IV ONE (15:00)
[2021-04-20] MEDS ORDERED: NS 1,000 ML IV SCH (15:00)
[2021-04-20] MEDS ORDERED: ACETAMINOPHEN 650MG PO PRIOR TO INFUSION PO ONE (15:00)
[2021-04-20 16:32] VITALS: BP 107/68
[2021-04-20 17:00] VITALS: BP_SYST 107; BP_SYST 131; BP_DIAS 68; BP_DIAS 73
== END 2021-04-20 17:00 | disposition home or self-care (01) ==
LOC: M INFU 14:56
PROVIDERS: ATTEND Nurse Practitioner Acute Care
DX: K50.90 Crohn's disease, unspecified, without complications (principal); Z91.030 Bee allergy status
CPT/HCPCS: 96413; Q5103

== ENCOUNTER 2021-06-01 15:00 | Outpatient (CLI) | payer BC ==
[~2021-06-01] VITALS: Ht 175.3 cm; Wt 60.0 kg
[~2021-06-01 15:00] MED LIST changes: +ACETAMINOPHEN 650MG PO PRIOR TO INFUSION PO ONE; +INFLIXIMAB BIOSIMILAR 600 MG in NS 190 ML IV ONE; +NS 1,000 ML IV SCH
[2021-06-01 15:05] VITALS: BP 141/93
[2021-06-01 16:17] LABS: BASO % 0.3 % (0.0-1.0); EOS % 0.4 % (0.0-3.0); HEMATOCRIT 31.5 % (42.0-52.0); HEMOGLOBIN 9.4 g/dl (13.5-17.5); LYMPH # 2.3 10^3/uL (1.5-5.0); LYMPH % 30.2 % (24.0-44.0); MEAN CORPUSCULAR HEMOGLOBIN 21.4 pg (27.0-33.0); MEAN CORPUSCULAR HGB CONC 29.8 g/dl (32.0-36.5); MEAN CORPUSCULAR VOLUME 71.8 fl (80.0-96.0); MONO # 0.6 10^3/uL (0.0-0.8); MONO % 8.2 % (2.0-8.0); NEUTROPHILS # 4.6 10^3/uL (1.5-8.5); NEUTROPHILS % 60.4 % (36.0-66.0); PLATELET COUNT, AUTOMATED 279 10^3/uL (150-450); RED BLOOD COUNT 4.39 10^6/uL (4.30-6.10); WHITE BLOOD COUNT 7.6 10^3/uL (4.0-10.0)
[2021-06-01 16:29] VITALS: BP 119/71
[2021-06-01 17:15] VITALS: BP 129/78
[2021-06-01 17:17] LABS: ALBUMIN 2.6 GM/DL (3.2-5.2); ALT/SGPT 23 U/L (12-78); BILIRUBIN,DIRECT < 0.1 MG/DL (0.0-0.2); BILIRUBIN,TOTAL 0.1 MG/DL (0.2-1.0); FOLATE 8.9 NG/ML; IRON (FE) 16 UG/DL (65-175); PERCENT SATURATION 5.9 % (19.7-50.0); TOTAL IRON BINDING CAPACITY 270 UG/DL (250-450); TOTAL PROTEIN 6.5 GM/DL (6.4-8.2); VITAMIN B12 LEVEL 559 PG/ML
== END 2021-06-01 17:15 | disposition home or self-care (01) ==
LOC: M INFU 15:00
PROVIDERS: ATTEND Internal Medicine Gastroenterology
DX: K50.90 Crohn's disease, unspecified, without complications (principal); Z91.030 Bee allergy status
CPT/HCPCS: 36592; 80076; 80230; 82397; 82607; 82746; 83550; 85025; 86140; 96413; Q5103

== ENCOUNTER → 2021-06-02 | Outpatient (REF) | payer BC ==
[~2021-06-02] MED LIST changes: -ACETAMINOPHEN 650MG PO PRIOR TO INFUSION PO ONE; -INFLIXIMAB BIOSIMILAR 600 MG in NS 190 ML IV ONE; -NS 1,000 ML IV SCH
== END ==
LOC: M LAB REF 11:21
PROVIDERS: ATTEND Internal Medicine Gastroenterology
DX: K51.90 Ulcerative colitis, unspecified, without complications (principal); R93.3 Abnormal findings on diagnostic imaging of other parts of digestive tract; R19.7 Diarrhea, unspecified

== ENCOUNTER 2021-07-13 15:49 | Outpatient (CLI) | payer BC ==
[~2021-07-13] VITALS: Ht 175.3 cm; Wt 60.0 kg
[~2021-07-13 15:49] MED LIST changes: +ACETAMINOPHEN 650MG PO PRIOR TO INFUSION PO ONE; +INFLIXIMAB BIOSIMILAR 600 MG in NS 190 ML IV ONE; +NS 1,000 ML IV SCH
[2021-07-13 15:50] VITALS: BP 133/84
[2021-07-13 16:37] VITALS: BP 127/74
[2021-07-13 16:37] LABS: BASO % 0.3 % (0.0-1.0); EOS % 0.1 % (0.0-3.0); HEMATOCRIT 32.1 % (42.0-52.0); HEMOGLOBIN 9.6 g/dl (13.5-17.5); LYMPH % 28.2 % (24.0-44.0); MEAN CORPUSCULAR HEMOGLOBIN 20.5 pg (27.0-33.0); MEAN CORPUSCULAR HGB CONC 29.9 g/dl (32.0-36.5); MEAN CORPUSCULAR VOLUME 68.4 fl (80.0-96.0); MONO # 0.8 10^3/uL (0.0-0.8); MONO % 11.7 % (2.0-8.0); NEUTROPHILS # 4.2 10^3/uL (1.5-8.5); NEUTROPHILS % 59.1 % (36.0-66.0); PLATELET COUNT, AUTOMATED 224 10^3/uL (150-450); RED BLOOD COUNT 4.69 10^6/uL (4.30-6.10); WHITE BLOOD COUNT 7.1 10^3/uL (4.0-10.0)
[2021-07-13 16:50] VITALS: BP 127/66
[2021-07-13 17:02] LABS: ALBUMIN 2.6 GM/DL (3.2-5.2); ALT/SGPT 29 U/L (12-78); BILIRUBIN,DIRECT < 0.1 MG/DL (0.0-0.2); BILIRUBIN,TOTAL 0.2 MG/DL (0.2-1.0); CHOLESTEROL LEVEL 131 MG/DL (<200); CHOLESTEROL RISK RATIO 2.977 (<5); HDL CHOLESTEROL 44 MG/DL (>40); LDL CHOLESTEROL 61 MG/DL (<100); NON-HDL-C 87 MG/DL; TOTAL PROTEIN 6.4 GM/DL (6.4-8.2); TRIGLYCERIDES LEVEL 130 MG/DL (<150)
== END 2021-07-13 17:20 | disposition home or self-care (01) ==
LOC: M INFU 15:49
PROVIDERS: ATTEND Internal Medicine Gastroenterology
DX: K50.90 Crohn's disease, unspecified, without complications (principal); Z91.030 Bee allergy status
CPT/HCPCS: 36592; 80061; 80076; 85025; 96413; Q5103

== ENCOUNTER → 2021-07-14 | Outpatient (REF) | payer BC ==
[~2021-07-14] MED LIST changes: -ACETAMINOPHEN 650MG PO PRIOR TO INFUSION PO ONE; -INFLIXIMAB BIOSIMILAR 600 MG in NS 190 ML IV ONE; -NS 1,000 ML IV SCH
[2021-07-14 16:47] LABS: CLOSTRIDIUM DIFFICILE PCR NEGATIVE (NEGATIVE)
== END ==
LOC: M LAB REF 15:33
PROVIDERS: ATTEND Internal Medicine Gastroenterology
DX: K51.90 Ulcerative colitis, unspecified, without complications (principal)

== ENCOUNTER → 2021-08-31 | Outpatient (REF) | payer BC ==
[2021-08-31 11:49] LABS: BASO # 0.1 10^3/uL (0.0-0.2); BASO % 0.5 % (0.0-1.0); EOS % 0.2 % (0.0-3.0); HEMATOCRIT 34.6 % (42.0-52.0); HEMOGLOBIN 10.2 g/dl (13.5-17.5); LYMPH # 1.7 10^3/uL (1.5-5.0); LYMPH % 17.8 % (24.0-44.0); MEAN CORPUSCULAR HEMOGLOBIN 21.3 pg (27.0-33.0); MEAN CORPUSCULAR HGB CONC 29.5 g/dl (32.0-36.5); MEAN CORPUSCULAR VOLUME 72.1 fl (80.0-96.0); NEUTROPHILS # 6.8 10^3/uL (1.5-8.5); PLATELET COUNT, AUTOMATED 364 10^3/uL (150-450); WHITE BLOOD COUNT 9.5 10^3/uL (4.0-10.0)
[2021-08-31 12:18] LABS: BILIRUBIN,DIRECT 0.2 MG/DL (0.0-0.2); BILIRUBIN,TOTAL 0.5 MG/DL (0.2-1.0); CHOLESTEROL RISK RATIO 2.175 (<5); TOTAL PROTEIN 6.8 GM/DL (6.4-8.2)
== END ==
LOC: M LABDRAWC 11:21
PROVIDERS: ATTEND Internal Medicine Gastroenterology
DX: K51.90 Ulcerative colitis, unspecified, without complications (principal)

== ENCOUNTER 2021-10-13 15:21 | Emergency (ER) | payer BC ==
[2021-10-13] MEDS ORDERED: NS 1,000 ML IV ONE ×4 (15:45→23:00)
[2021-10-13] MEDS ORDERED: ONDANSETRON 4MG 2ML VIAL IV ONE ×2 (15:45→23:00)
[2021-10-13 16:21] LABS: BLOOD UREA NITROGEN 13 MG/DL (7-18); CALCIUM LEVEL 9.5 MG/DL (8.5-10.1); CARBON DIOXIDE LEVEL 25 MEQ/L (21-32); CHLORIDE LEVEL 108 MEQ/L (98-107); CREATININE FOR GFR 1.43 MG/DL (0.70-1.30); GLOMERULAR FILTRATION RATE > 60.0 (>60); GLUCOSE, FASTING 99 MG/DL (70-100); MAGNESIUM LEVEL 1.8 MG/DL (1.8-2.4); POTASSIUM SERUM 3.2 MEQ/L (3.5-5.1); SODIUM LEVEL 144 MEQ/L (136-145)
[2021-10-13] MEDS ORDERED: POTASSIUM CHLORIDE 10MEQ SR TABLET PO ONE (16:25)
[2021-10-13] MEDS ORDERED: ACETAMINOPHEN 500 MG TAB PO ONE (16:35)
[2021-10-13 19:30] LABS: BASO % 0.5 % (0.0-1.0); EOS % 0.1 % (0.0-3.0); HEMATOCRIT 26.1 % (42.0-52.0); HEMOGLOBIN 7.8 g/dl (13.5-17.5); LYMPH # 0.3 10^3/uL (1.5-5.0); MEAN CORPUSCULAR HEMOGLOBIN 21.6 pg (27.0-33.0); MEAN CORPUSCULAR HGB CONC 29.9 g/dl (32.0-36.5); MEAN CORPUSCULAR VOLUME 72.3 fl (80.0-96.0); MONO # 0.5 10^3/uL (0.0-0.8); MONO % 5.9 % (2.0-8.0); NEUTROPHILS # 7.8 10^3/uL (1.5-8.5); NEUTROPHILS % 89.8 % (36.0-66.0); PLATELET COUNT, AUTOMATED 210 10^3/uL (150-450); RED BLOOD COUNT 3.61 10^6/uL (4.30-6.10); WHITE BLOOD COUNT 8.7 10^3/uL (4.0-10.0)
[2021-10-13] MEDS ORDERED: POTASSIUM CHLORIDE 10% LIQ 20 MEQ/15 ML UDC PO ONE (20:40)
[2021-10-13 22:00] VITALS: BP 101/56
== END 2021-10-14 03:03 | disposition home or self-care (01) ==
LOC: M ED 15:21
DX: E86.0 Dehydration (principal); E87.6 Hypokalemia; K50.919 Crohn's disease, unspecified, with unspecified complications; D69.3 Immune thrombocytopenic purpura; Z91.030 Bee allergy status
CPT/HCPCS: 80047; 80048; 83605; 83735; 85025; 87040; 87486; 87581; 87633; 87798; 96361; 96374; 96376; 99284; J2405

== ENCOUNTER 2021-10-25 20:25 | Emergency (ER) | payer BC ==
[~2021-10-25] VITALS: Ht 172.7 cm; Wt 58.6 kg
[2021-10-25] MEDS ORDERED: OMEP40CA5 (20:36)
[2021-10-25] MEDS ORDERED: ONDANSETRON 4MG 2ML VIAL IV ONE (20:50)
[2021-10-25] MEDS ORDERED: METOCLOPRAMIDE INJ 10MG/2ML VIAL (J2765 PER 1) IV ONE (21:15)
[2021-10-25 21:17] LABS: ALBUMIN 2.9 GM/DL (3.2-5.2); ALT/SGPT 24 U/L (12-78); BILIRUBIN,DIRECT 0.1 MG/DL (0.0-0.2); BILIRUBIN,TOTAL 0.3 MG/DL (0.2-1.0); BLOOD UREA NITROGEN 16 MG/DL (7-18); CARBON DIOXIDE LEVEL 28 MEQ/L (21-32); CHLORIDE LEVEL 105 MEQ/L (98-107); CREATININE FOR GFR 0.99 MG/DL (0.70-1.30); GLOMERULAR FILTRATION RATE > 60.0 (>60); GLUCOSE, FASTING 97 MG/DL (70-100); LIPASE 105 U/L (73-393); POTASSIUM SERUM 3.7 MEQ/L (3.5-5.1); SODIUM LEVEL 139 MEQ/L (136-145); TOTAL PROTEIN 7.2 GM/DL (6.4-8.2)
[2021-10-25 21:25] LABS: BASO # 0.1 10^3/uL (0.0-0.2); BASO % 0.4 % (0.0-1.0); EOS # 0.4 10^3/uL (0.0-0.5); EOS % 2.3 % (0.0-3.0); HEMATOCRIT 31.5 % (42.0-52.0); HEMOGLOBIN 9.5 g/dl (13.5-17.5); LYMPH # 1.5 10^3/uL (1.5-5.0); LYMPH % 8.5 % (24.0-44.0); MEAN CORPUSCULAR HEMOGLOBIN 21.3 pg (27.0-33.0); MEAN CORPUSCULAR HGB CONC 30.2 g/dl (32.0-36.5); MEAN CORPUSCULAR VOLUME 70.6 fl (80.0-96.0); MONO % 5.4 % (2.0-8.0); PLATELET COUNT, AUTOMATED 347 10^3/uL (150-450); RED BLOOD COUNT 4.46 10^6/uL (4.30-6.10); WHITE BLOOD COUNT 18.1 10^3/uL (4.0-10.0)
[2021-10-25] MEDS: GASTROGRAFIN SOLUTION 30ML PO SCH ×2 (21:37→22:07)
[2021-10-25] MEDS ORDERED: ISOVUE-370 76% 100ML VIAL As Ordered ONE (22:27)
[2021-10-25] MEDS ORDERED: PROMETHAZINE 25MG/ML 1ML VIAL IV ONE (22:45)
[2021-10-25 22:50] LABS: RSV AMPLIFICATION NEGATIVE (NEGATIVE)
[2021-10-26] MEDS ORDERED: PROMETHAZINE 25MG/ML 1ML VIAL IV ONE (00:10)
[2021-10-26] MEDS ORDERED: MIDAZOLAM INJ 2MG/2ML VIAL (J2250 PER 1MG) IV ONE (01:30)
[2021-10-26] MEDS ORDERED: PIPERACILLIN/TAZOBACTAM SOD 3.375 GM in D5W MINI-BAG PLUS 50 ML IV ONE (02:30)
[2021-10-26] MEDS ORDERED: ONDANSETRON 4MG 2ML VIAL IV SCH (02:40)
[2021-10-26] MEDS ORDERED: PROMETHAZINE 25MG/ML 1ML VIAL IV PRN (02:40)
[2021-10-26] MEDS: ONDANSETRON 4MG 2ML VIAL IV SCH ×4 (03:00→15:00)
[2021-10-26] MEDS: MORPHINE 4 MG/ML 1ML VIAL/SYRINGE IV PRN ×4 (04:58→16:13)
[2021-10-26] MEDS ORDERED: NS 1,000 ML IV SCH (07:25)
[2021-10-26] MEDS ORDERED: NS 1,000 ML IV ONE (07:40)
[2021-10-26 07:44] LABS: BASO # 0.1 10^3/uL (0.0-0.2); BASO % 0.2 % (0.0-1.0); EOS % 0.1 % (0.0-3.0); HEMATOCRIT 34.3 % (42.0-52.0); HEMOGLOBIN 10.7 g/dl (13.5-17.5); LYMPH % 4.4 % (24.0-44.0); MEAN CORPUSCULAR HEMOGLOBIN 21.6 pg (27.0-33.0); MEAN CORPUSCULAR HGB CONC 31.2 g/dl (32.0-36.5); MEAN CORPUSCULAR VOLUME 69.2 fl (80.0-96.0); MONO # 1.4 10^3/uL (0.0-0.8); MONO % 6.4 % (2.0-8.0); NEUTROPHILS # 19.3 10^3/uL (1.5-8.5); NEUTROPHILS % 88.4 % (36.0-66.0); RED BLOOD COUNT 4.96 10^6/uL (4.30-6.10); WHITE BLOOD COUNT 21.8 10^3/uL (4.0-10.0)
[2021-10-26 07:54] LABS: PLATELET COUNT, AUTOMATED 470 10^3/uL (150-450)
[2021-10-26] MEDS ORDERED: HALOPERIDOL 5MG/ML VIAL (J1630 PER 1) IV ONE (11:10)
[2021-10-26 16:00] VITALS: BP 129/76
== END 2021-10-26 16:14 | disposition short-term general hospital (02) ==
LOC: EDBD 20:25 → M ED 20:25
DX: K56.699 Other intestinal obstruction unspecified as to partial versus complete obstruction (principal); D69.3 Immune thrombocytopenic purpura; K50.919 Crohn's disease, unspecified, with unspecified complications; K21.9 Gastro-esophageal reflux disease without esophagitis; Z93.2 Ileostomy status; Z90.49 Acquired absence of other specified parts of digestive tract; Z97.8 Presence of other specified devices; Z88.8 Allergy status to other drugs, medicaments and biological substances; Z91.030 Bee allergy status
CPT/HCPCS: 71045; 74018; 74177; 80053; 82248; 83690; 85025; 87631; 96361; 96374; 96375; 96376; 99285; J1630; J2250; J2270; J2405; J2543; J2550; J2765; Q9963; Q9967

== ENCOUNTER → 2021-11-14 | Outpatient (REF) | payer BC ==
[~2021-11-14] MED LIST changes: +OMEP40CA5
[2021-11-14 18:09] LABS: ALBUMIN 3.5 GM/DL (3.2-5.2); ALT/SGPT 29 U/L (12-78); BILIRUBIN,TOTAL 0.3 MG/DL (0.2-1.0); BLOOD UREA NITROGEN 18 MG/DL (7-18); CALCIUM LEVEL 9.5 MG/DL (8.5-10.1); CARBON DIOXIDE LEVEL 31 MEQ/L (21-32); CHLORIDE LEVEL 103 MEQ/L (98-107); CREATININE FOR GFR 0.98 MG/DL (0.70-1.30); FERRITIN 8 NG/ML (26-388); GLOMERULAR FILTRATION RATE > 60.0 (>60); GLUCOSE, FASTING 105 MG/DL (70-100); IRON (FE) 12 UG/DL (65-175); PERCENT SATURATION 2.7 % (19.7-50.0); POTASSIUM SERUM 4.3 MEQ/L (3.5-5.1); SODIUM LEVEL 138 MEQ/L (136-145); TOTAL IRON BINDING CAPACITY 449 UG/DL (250-450); TOTAL PROTEIN 7.6 GM/DL (6.4-8.2)
== END ==
LOC: M SFHCCLAY 10:56
PROVIDERS: ATTEND Family Medicine
DX: D50.9 Iron deficiency anemia, unspecified (principal); Z90.49 Acquired absence of other specified parts of digestive tract; Z93.2 Ileostomy status

== ENCOUNTER → 2021-11-24 | Outpatient (REF) | payer BC ==
[2021-11-24 18:58] LABS: APPEARANCE, URINE MANUAL CLOUDY (CLEAR); COLOR, URINE MANUAL YELLOW (YELLOW)
[2021-11-24 18:59] LABS: GLUCOSE, URINE (UA) MANUAL NEGATIVE (NEGATIVE); PROTEIN, URINE MANUAL NEGATIVE (NEGATIVE); SPECIFIC GRAVITY,URINE MANUAL 1.025 (1.002-1.035)
[2021-11-24 19:00] LABS: BILIRUBIN, URINE MANUAL NEGATIVE (NEGATIVE); BLOOD URINE MANUAL NEGATIVE (NEGATIVE); KETONE, URINE MANUAL NEGATIVE (NEGATIVE); LEUKOCYTE ESTERASE, URINE MAN NEGATIVE (NEGATIVE); NITRITE, URINE MANUAL NEGATIVE (NEGATIVE); UROBILINOGEN, URINE MANUAL NORMAL (NORMAL)
[2021-11-24 19:21] LABS: AMORPHOUS SEDIMENT, URINE LARGE AMOUNT (NEGATIVE); BACTERIA, URINE NONE SEEN; HYALINE CAST, URINE NONE SEEN /lpf (0-1); RBC, URINE NONE SEEN /hpf (0-3); SQUAMOUS EPITHELIAL CELL URINE NONE SEEN /hpf (SMALL AMT); WBC, URINE NONE SEEN /hpf (0-3)
== END ==
LOC: M SMT 17:20
PROVIDERS: ATTEND Physician Assistant
DX: R86.8 Other abnormal findings in specimens from male genital organs (principal)

== ENCOUNTER → 2022-05-22 | Outpatient (REF) | payer BC ==
[2022-05-22 11:51] LABS: BASO # 0.1 10^3/uL (0.0-0.2); BASO % 1.2 % (0.0-1.0); EOS # 0.2 10^3/uL (0.0-0.5); EOS % 3.8 % (0.0-3.0); HEMOGLOBIN 11.8 g/dl (13.5-17.5); LYMPH % 32.7 % (24.0-44.0); MEAN CORPUSCULAR HEMOGLOBIN 19.8 pg (27.0-33.0); MEAN CORPUSCULAR HGB CONC 28.8 g/dl (32.0-36.5); MEAN CORPUSCULAR VOLUME 68.9 fl (80.0-96.0); MONO # 0.4 10^3/uL (0.0-0.8); MONO % 6.6 % (2.0-8.0); NEUTROPHILS # 3.4 10^3/uL (1.5-8.5); NEUTROPHILS % 55.5 % (36.0-66.0); PLATELET COUNT, AUTOMATED 293 10^3/uL (150-450); RED BLOOD COUNT 5.95 10^6/uL (4.30-6.10); WHITE BLOOD COUNT 6.1 10^3/uL (4.0-10.0)
[2022-05-22 12:21] LABS: ALBUMIN 3.8 G/DL (3.2-5.2); ALKALINE PHOSPHATASE 145 U/L (46-116); ALT/SGPT 28 U/L (7.0-40); AST/SGOT 22 U/L (<34); BILIRUBIN,TOTAL 0.3 MG/DL (0.3-1.2); BLOOD UREA NITROGEN 15 MG/DL (9-23); CARBON DIOXIDE LEVEL 27 MMOL/L (20-31); CHLORIDE LEVEL 105 MMOL/L (98-107); CREATININE FOR GFR 1.11 MG/DL (0.70-1.30); GLOMERULAR FILTRATION RATE > 60.0 (>60); GLUCOSE, FASTING 93 MG/DL (60-100); IRON (FE) 22 UG/DL (65-175); PERCENT SATURATION 5.2 % (19.7-50.0); POTASSIUM SERUM 4.5 MMOL/L (3.5-5.1); SODIUM LEVEL 140 MMOL/L (136-145); TOTAL IRON BINDING CAPACITY 422 UG/DL (250-425); TOTAL PROTEIN 7.4 G/DL (5.7-8.2)
[2022-05-22 12:22] LABS: FERRITIN 2.2 NG/ML (10.5-307.3)
== END ==
LOC: M LABDRAWC 11:13
PROVIDERS: ATTEND Nurse Practitioner
DX: D69.3 Immune thrombocytopenic purpura (principal)

== ENCOUNTER → 2022-07-03 | Outpatient (REF) | payer BC ==
[2022-07-03 11:59] LABS: IRON (FE) 88 UG/DL (65-175); PERCENT SATURATION 28.8 % (19.7-50.0); TOTAL IRON BINDING CAPACITY 306 UG/DL (250-425)
[2022-07-03 12:00] LABS: ALBUMIN 3.8 G/DL (3.2-5.2); ALKALINE PHOSPHATASE 157 U/L (46-116); ALT/SGPT 43 U/L (7.0-40); AST/SGOT 25 U/L (<34); BILIRUBIN,TOTAL 0.4 MG/DL (0.3-1.2); BLOOD UREA NITROGEN 19 MG/DL (9-23); CALCIUM LEVEL 8.7 MG/DL (8.5-10.1); CARBON DIOXIDE LEVEL 26 MMOL/L (20-31); CHLORIDE LEVEL 108 MMOL/L (98-107); CREATININE FOR GFR 1.06 MG/DL (0.70-1.30); GLOMERULAR FILTRATION RATE > 60.0 (>60); GLUCOSE, FASTING 91 MG/DL (60-100); POTASSIUM SERUM 4.2 MMOL/L (3.5-5.1); SODIUM LEVEL 140 MMOL/L (136-145); TOTAL PROTEIN 6.9 G/DL (5.7-8.2)
[2022-07-03 12:02] LABS: BASO # 0.1 10^3/uL (0.0-0.2); EOS # 0.2 10^3/uL (0.0-0.5); EOS % 3.8 % (0.0-3.0); FERRITIN 143.3 NG/ML (10.5-307.3); HEMATOCRIT 46.8 % (42.0-52.0); HEMOGLOBIN 14.3 g/dl (13.5-17.5); LYMPH # 1.9 10^3/uL (1.5-5.0); MEAN CORPUSCULAR HEMOGLOBIN 23.1 pg (27.0-33.0); MEAN CORPUSCULAR HGB CONC 30.6 g/dl (32.0-36.5); MEAN CORPUSCULAR VOLUME 75.7 fl (80.0-96.0); MONO # 0.3 10^3/uL (0.0-0.8); MONO % 5.8 % (2.0-8.0); NEUTROPHILS # 3.3 10^3/uL (1.5-8.5); NEUTROPHILS % 57.1 % (36.0-66.0); PLATELET COUNT, AUTOMATED 184 10^3/uL (150-450); RED BLOOD COUNT 6.18 10^6/uL (4.30-6.10); WHITE BLOOD COUNT 5.8 10^3/uL (4.0-10.0)
== END ==
LOC: M LABDRAWC 11:25
PROVIDERS: ATTEND Nurse Practitioner
DX: D50.9 Iron deficiency anemia, unspecified (principal)

== ENCOUNTER → 2022-11-13 | Outpatient (REF) | payer BC ==
[2022-11-13 12:09] LABS: BASO # 0.1 10^3/uL (0.0-0.2); EOS # 0.2 10^3/uL (0.0-0.5); EOS % 3.3 % (0.0-3.0); HEMATOCRIT 46.1 % (42.0-52.0); HEMOGLOBIN 15.4 g/dl (13.5-17.5); LYMPH # 2.2 10^3/uL (1.5-5.0); LYMPH % 36.7 % (24.0-44.0); MEAN CORPUSCULAR HEMOGLOBIN 28.9 pg (27.0-33.0); MEAN CORPUSCULAR HGB CONC 33.4 g/dl (32.0-36.5); MEAN CORPUSCULAR VOLUME 86.5 fl (80.0-96.0); MONO # 0.4 10^3/uL (0.0-0.8); MONO % 6.6 % (2.0-8.0); NEUTROPHILS # 3.2 10^3/uL (1.5-8.5); NEUTROPHILS % 52.1 % (36.0-66.0); PLATELET COUNT, AUTOMATED 199 10^3/uL (150-450); RED BLOOD COUNT 5.33 10^6/uL (4.30-6.10); WHITE BLOOD COUNT 6.1 10^3/uL (4.0-10.0)
[2022-11-13 12:43] LABS: ALBUMIN 3.5 G/DL (3.2-5.2); ALKALINE PHOSPHATASE 134 U/L (46-116); ALT/SGPT 65 U/L (7.0-40); AST/SGOT 23 U/L (<34); BILIRUBIN,TOTAL 0.4 MG/DL (0.3-1.2); BLOOD UREA NITROGEN 15 MG/DL (9-23); CALCIUM LEVEL 8.6 MG/DL (8.5-10.1); CARBON DIOXIDE LEVEL 25 MMOL/L (20-31); CHLORIDE LEVEL 109 MMOL/L (98-107); CREATININE FOR GFR 1.09 MG/DL (0.70-1.30); GLOMERULAR FILTRATION RATE > 60.0 (>60); GLUCOSE, FASTING 92 MG/DL (60-100); IRON (FE) 63 UG/DL (65-175); PERCENT SATURATION 22.3 % (19.7-50.0); POTASSIUM SERUM 4.3 MMOL/L (3.5-5.1); SODIUM LEVEL 144 MMOL/L (136-145); TOTAL IRON BINDING CAPACITY 283 UG/DL (250-425); TOTAL PROTEIN 6.6 G/DL (5.7-8.2)
[2022-11-13 12:44] LABS: FERRITIN 77.3 NG/ML (10.5-307.3)
== END ==
LOC: M LABDRAWC 11:43
PROVIDERS: ATTEND Nurse Practitioner
DX: D69.59 Other secondary thrombocytopenia (principal)

== ENCOUNTER → 2023-01-29 | Outpatient (REF) | payer BC ==
[~2023-01-29] MED LIST changes: +RISA360W
[2023-01-29 18:44] LABS: BASO # 0.1 10^3/uL (0.0-0.2); BASO % 0.8 % (0.0-1.0); EOS # 0.2 10^3/uL (0.0-0.5); EOS % 2.6 % (0.0-3.0); HEMATOCRIT 49.5 % (42.0-52.0); HEMOGLOBIN 16.8 g/dl (13.5-17.5); LYMPH # 2.6 10^3/uL (1.5-5.0); LYMPH % 34.4 % (24.0-44.0); MEAN CORPUSCULAR HEMOGLOBIN 28.8 pg (27.0-33.0); MEAN CORPUSCULAR HGB CONC 33.9 g/dl (32.0-36.5); MEAN CORPUSCULAR VOLUME 84.8 fl (80.0-96.0); MONO # 0.4 10^3/uL (0.0-0.8); NEUTROPHILS # 4.3 10^3/uL (1.5-8.5); NEUTROPHILS % 57.1 % (36.0-66.0); PLATELET COUNT, AUTOMATED 185 10^3/uL (150-450); RED BLOOD COUNT 5.84 10^6/uL (4.30-6.10); WHITE BLOOD COUNT 7.6 10^3/uL (4.0-10.0)
[2023-01-29 19:11] LABS: IRON (FE) 62 UG/DL (65-175); PERCENT SATURATION 19.9 % (19.7-50.0); TOTAL IRON BINDING CAPACITY 312 UG/DL (250-425)
[2023-01-29 19:13] LABS: AMORPHOUS SEDIMENT LARGE (NEGATIVE); APPEARANCE, URINE TURBID (CLEAR); BACTERIA, URINE AUTO NEGATIVE (NEGATIVE); BILIRUBIN, URINE AUTO NEGATIVE (NEGATIVE); BLOOD, URINE BLOOD 1+ (NEGATIVE); COLOR, URINE AMBER (YELLOW); GLUCOSE, URINE (UA) AUTO NEGATIVE (NEGATIVE); KETONE, URINE AUTO NEGATIVE (NEGATIVE); LEUKOCYTE ESTERASE, URINE AUTO NEGATIVE (NEGATIVE); MUCUS, URINE SMALL (NEGATIVE); NITRITE, URINE AUTO NEGATIVE (NEGATIVE); PROTEIN, URINE AUTO NEGATIVE (NEGATIVE); RBC, URINE AUTO 1 /HPF (0-3); SPECIFIC GRAVITY URINE AUTO 1.026 (1.002-1.035); SQUAMOUS EPITHELIAL CELL UR AU 0 /HPF (0-6); UROBILINOGEN, URINE AUTO 0.2 mg/dL (0.0-2.0); WBC, URINE AUTO 0 /HPF (0-3)
[2023-01-29 19:14] LABS: ALBUMIN 3.9 G/DL (3.2-5.2); ALKALINE PHOSPHATASE 145 U/L (46-116); ALT/SGPT 43 U/L (7.0-40); AST/SGOT 17 U/L (<34); BILIRUBIN,TOTAL 0.4 MG/DL (0.3-1.2); BLOOD UREA NITROGEN 14 MG/DL (9-23); CALCIUM LEVEL 8.9 MG/DL (8.5-10.1); CARBON DIOXIDE LEVEL 27 MMOL/L (20-31); CHLORIDE LEVEL 104 MMOL/L (98-107); CHOLESTEROL LEVEL 180 MG/DL (<200); CHOLESTEROL RISK RATIO 3.92 (<5); CREATININE FOR GFR 1.03 MG/DL (0.70-1.30); FREE T4 1.17 NG/DL (0.89-1.76); GLOMERULAR FILTRATION RATE > 60.0 (>60); GLUCOSE, FASTING 101 MG/DL (60-100); HDL CHOLESTEROL 45.9 MG/DL (>40); LDL CHOLESTEROL 114.5 MG/DL (<100); NON-HDL-C 134.1 MG/DL; POTASSIUM SERUM 4.3 MMOL/L (3.5-5.1); SODIUM LEVEL 140 MMOL/L (136-145); THYROID STIMULATING HORMONE 2.768 uIU/ML (0.55-4.78); TOTAL PROTEIN 7.1 G/DL (5.7-8.2); TRIGLYCERIDES LEVEL 98 MG/DL (<150)
== END ==
LOC: M SFHCCLAY 08:59
PROVIDERS: ATTEND Family Medicine
DX: Z00.00 Encounter for general adult medical examination without abnormal findings (principal); K50.018 Crohn's disease of small intestine with other complication; D50.9 Iron deficiency anemia, unspecified; Z93.2 Ileostomy status

== ENCOUNTER → 2023-06-22 | Outpatient (CLI) | payer BC ==
[~2023-06-22] MED LIST changes: +PROHANCE 279.3MG/ML 15ML VIAL As Ordered ONE; +PROHANCE 279.3MG/ML 5ML VIAL As Ordered ONE
== END ==
LOC: M RAD 15:09
PROVIDERS: ATTEND Student in an Organized Health Care Education/Training Program
DX: K50.10 Crohn's disease of large intestine without complications (principal)
CPT/HCPCS: 74183; A9576

== ENCOUNTER → 2024-10-21 | Outpatient (REF) | payer BC ==
[~2024-10-21] MED LIST changes: -PRED50TA PO; +PRED50TA57 PO; -PROHANCE 279.3MG/ML 15ML VIAL As Ordered ONE; -PROHANCE 279.3MG/ML 5ML VIAL As Ordered ONE
[2024-10-21 18:57] LABS: PLATELET COUNT, AUTOMATED 231 10^3/uL (150-450)
[2024-10-21 18:58] LABS: IRON (FE) 71.0 UG/DL (65-175); PERCENT SATURATION 21.3 % (19.7-50.0)
[2024-10-21 18:59] LABS: ALT/SGPT 96.0 U/L (7.0-40); AST/SGOT 43.0 U/L (<34); CALCIUM LEVEL 9.0 MG/DL (8.5-10.1); CARBON DIOXIDE LEVEL 27.0 MMOL/L (20-31); CHLORIDE LEVEL 104.0 MMOL/L (98-107); CHOLESTEROL LEVEL 178.0 MG/DL (<200); CHOLESTEROL RISK RATIO 4.0 (<5); CREATININE FOR GFR 1.14 MG/DL (0.70-1.30); GLOMERULAR FILTRATION RATE 89.8 (>60); LDL CHOLESTEROL 103.5 MG/DL (<100); NON-HDL-C 133.5 MG/DL; POTASSIUM SERUM 4.2 MMOL/L (3.5-5.1); SODIUM LEVEL 142.0 MMOL/L (136-145); TRIGLYCERIDES LEVEL 150.0 MG/DL (<150)
[2024-10-21 19:13] LABS: ESTIMATED AVERAGE GLUCOSE 100.0 MG/DL (60-110)
== END ==
LOC: M SFHCCLAY 13:37
PROVIDERS: ATTEND Physician Assistant
DX: Z00.00 Encounter for general adult medical examination without abnormal findings (principal); E61.1 Iron deficiency; K50.10 Crohn's disease of large intestine without complications; D69.6 Thrombocytopenia, unspecified

== ENCOUNTER → 2024-10-27 | Outpatient (REF) | payer BC ==
[2024-10-27 19:24] LABS: HEPATITIS C VIRUS ABY INDEX < 0.02 INDEX (<0.8)
== END ==
LOC: M SFHCCLAY 12:43
PROVIDERS: ATTEND Physician Assistant
DX: R79.89 Other specified abnormal findings of blood chemistry (principal)

== ENCOUNTER → 2024-12-01 | Outpatient (CLI) | payer BC | LOC: M RAD 06:26 | PROVIDERS: ATTEND Physician Assistant | DX: R74.01 Elevation of levels of liver transaminase levels (principal) ==

== ENCOUNTER → 2025-03-10 | Outpatient (REF) | payer BC ==
[~2025-03-10] MED LIST changes: +AMPH1CAP16; -BACTDSTA PO; +SULF-8 PO
[2025-03-10 18:46] LABS: BASO # 0.1 10^3/uL (0.0-0.2); BASO % 0.7 % (0.0-1.0); EOS # 0.2 10^3/uL (0.0-0.5); EOS % 2.5 % (0.0-3.0); LYMPH # 2.3 10^3/uL (1.5-5.0); LYMPH % 26.1 % (24.0-44.0); MONO # 0.6 10^3/uL (0.0-0.8); MONO % 6.3 % (2.0-8.0); NEUTROPHILS # 5.7 10^3/uL (1.5-8.5); NEUTROPHILS % 64.1 % (36.0-66.0); PLATELET COUNT, AUTOMATED 248 10^3/uL (150-450)
[2025-03-10 19:12] LABS: ALT/SGPT 56 U/L (7.0-40); AST/SGOT 26 U/L (<34); C REACTIVE PROTEIN QUANTITATIV < 0.50 MG/DL (<1.0); CALCIUM LEVEL 9.1 MG/DL (8.5-10.1); CARBON DIOXIDE LEVEL 28 MMOL/L (20-31); CHLORIDE LEVEL 105 MMOL/L (98-107); CREATININE FOR GFR 1.07 MG/DL (0.70-1.30); GLOMERULAR FILTRATION RATE > 90.0 (>60); POTASSIUM SERUM 4.0 MMOL/L (3.5-5.1); SODIUM LEVEL 143 MMOL/L (136-145)
[2025-03-10 19:19] LABS: VITAMIN B12 LEVEL 584 PG/ML (211-911)
== END ==
LOC: M LAB REF 16:16
PROVIDERS: ATTEND Internal Medicine Gastroenterology
DX: K50.111 Crohn's disease of large intestine with rectal bleeding (principal)

== ENCOUNTER → 2025-03-16 | Outpatient (REF) | payer BC | LOC: M LAB REF 14:17 | PROVIDERS: ATTEND Internal Medicine Gastroenterology | DX: K50.111 Crohn's disease of large intestine with rectal bleeding (principal) ==